=== PATIENT | male | born 1965 | race African-American/Black ===

== ENCOUNTER 2019-01-07 18:08 | Inpatient (IN) | payer MEDICAID ==
[~2019-01-07] VITALS: Ht 182.9 cm; Wt 126.1 kg
--- NOTE | ~2019-01-07 | HEMODYNAMI ---
PATIENT:BRIANNA RAE MEDICAL RECORD: [id number] : 63 LOCATION[facility] D.[address] [id number] ADMISSION DATE: 01/07/19 Generatedon:01/08/201912:54 Patient name: BRIANNA RAE Patient #: [id number] : 1965 Date of study: 01/08/2019 Page: Of Hemodynamic Procedure Report Patient Data Patient Demographics Procedure consent was obtained First Name: BRIANNA Gender: Male Last Name: BUTHC : 1965 Patient #: [id number] Age: 53 year(s) Race: Black SSN: [id number] Additional ID: [id number] Contact details Address: [address] [place] [address] [place] State: [place] City: [place] Zip code: [address] Past Medical History Allergies: No known allergies Admission Admission Data Admission Date: 01/07/2019 Admission Time: 21:18 Arrival Date: 01/08/2019 Arrival Time: 0:00 Admit Source: Other Insurance Payor: Medicaid Room #: D.2115 Height (in.): 71.65 BSA: 2.34 (m2) Height (cm.): 182 BMI: 34.42 (kg/m2) Weight (lbs.): 251.33 Weight (kg.): 114 Lab Results Lab Result Date: 01/08/2019 Lab Result Time: 0:00 Biochemistry Name Units Result Min Max BUN mg/dl 26 --(----)-* 7 18 CK-MB ng/ml 1.6 --(-*--)-- 0 3.6 Creatinine mg/dl 1.7 --(----)-* 0.6 1.3 CBC Name Units Result Min Max Hemoglobin g/dl 13.7 --(*---)-- 13.5 17.5 Procedure Procedure Types Cath Procedure Diagnostic Procedure LHC Coronaries only Sedation Charges Moderate Sedation up to 30 minutes Peripheral Cath Diagnostic Procedure Imaging Technologist Peripheral Procedures Renal Arteriogram Procedure Description Procedure Date Procedure Date: 01/08/2019 Procedure Start Time: 12:22 Procedure End Time: 12:53 Procedure Staff Name Function Octavio Boudreaux MD Performing Physician Pily Chavez RT Monitor Uzair Bahena RN Nurse Heather Vallejo RT Scrub Indication Chest pain Procedure Data Cath Procedure Fluoroscopy Diagnostic fluoroscopy Total fluoroscopy Time: 7.3 time: 7.3 min min Diagnostic fluoroscopy Total fluoroscopy dose: dose: 2603 mGy 2603 mGy Contrast Material Contrast Material Type Amount (ml) Isovue 300 206 Entry Location Entry Primary Successful Side Size Upsize Upsize Entry Closure Succes sful Closure Location (Fr) 1 (Fr) 2 (Fr) Remarks Device Remarks Femoral Right 5 Fr Exoseal artery Estimated blood loss: 10 ml Diagnostic catheters Device Type Used For End Catheter Placement MULTIPACK JL 4.0 5Fr Procedure catheter DIAGNOSTIC JL 5 5Fr Procedure catheter ([id number]) MULTIPACK 3DRC 5Fr Procedure catheter DIAGNOSTIC AL2 5Fr Procedure catheter ([id number]) Procedure Complications No complications Procedure Medications Medication Administration Route Dosage Oxygen etCO2 Nasal cannula 2 l/min Lidocaine 2% added to field 20 Heparin Flush Bag added to field 2 bags (1000units/500ml NS) 0.9% NaCl I.V. 100 ml/hr Versed I.V. 1 mg Fentanyl I.V. 50 mcg Versed I.V. 1 mg Fentanyl I.V. 50 mcg Hemodynamics Rest BSA: 2.34 (m2) HGB: 13.7 (g/dl) O2 Consumption: Estimated: 291.67 (ml/min) O2 Co nsumption indexed: Estimated:124.65 (ml/min/m) Heart Rate: 86 (bpm) Pressure Samples Time Site Value (mmHg) Purpose Heart Use Rate(bpm) 12:25 AO 155/92(117) Snapshot 86 Snapshots Pre Cath Intra NCS Post Cath Vital Signs Time Heart Resp SPO2 etCO2 NIBP (mmHg) Rhythm Pain Sedation Rate (ipm) (%) (mmHg) Status Level (bpm) 12:12:14 87 12 98 34.4 No Cuff NSR 0 (11) 10(A) , No pain 12:16:30 85 16 94 35.2 168/110(133) NSR 0 (11) 10(A) , No pain 12:20:44 88 16 93 34.4 165/105(136) NSR 0 (11) 10(A) , No pain 12:25:00 87 16 93 31.5 158/101(127) NSR 0 (11) 9(A) , No pain 12:29:18 89 16 92 30.7 175/107(135) NSR 0 (11) 9(A) , No pain 12:33:40 92 15 93 34.4 177/111(149) NSR 0 (11) 9(A) , No pain 12:38:02 91 15 92 34.4 176/110(143) NSR 0 (11) 9(A) , No pain 12:42:27 96 15 93 33.7 173/104(143) NSR 0 (11) 9(A) , No pain 12:46:51 97 17 92 32.2 176/113(146) NSR 0 (11) 10(A) , No pain 12:51:17 95 15 92 32.9 186/113(158) NSR 0 (11) 10(A) , No pain Medications Time Medication Route Dose Verified Delivered Reason Notes Eff ectiveness by by 12:11:34 Oxygen etCO2 2 Octavio Buffie used for Nasal l/min Janusz Bahena RN procedure cannula 12:11:40 Lidocaine 2% added 20ml Octavio Octavio for local to vial Janusz Boudreaux MD anesthetic field 12:11:47 Heparin Flush added 2 Octavio Octavio used for Bag to bags Janusz Boudreaux MD procedure (1000units/500ml field NS) 12:11:56 0.9% NaCl I.V. 100 Octavio Buffie Per ml/hr Janusz Bahena RN physician 12:20:46 Versed I.V. 1 mg Octavio Buffie for Janusz Bahena RN sedation 12:20:53 Fentanyl I.V. 50 Octavio Buffie for mcg Janusz Bahena RN sedation 12:37:31 Versed I.V. 1 mg Octavio Buffie for Janusz Bahena RN sedation 12:37:35 Fentanyl I.V. 50 Octavio Buffie for mcg Janusz Bahena RN sedation Procedure Log Time Note 11:52:31 Patient Height : 71.65 inches 11:52:41 Patient Weight : 251.33 lbs 11:52:48 Admit Source: Other 11:52:50 Arrival Date: 01/08/2019 12:00:00 AM 11:52:56 Insurance Payor : Medicaid 11:55:24 Lab Result : CK-MB 1.6 ng/ml 11:55:24 Lab Result : Hemoglobin 13.7 g/dl 11:55:24 Lab Result : BUN 26 mg/dl 11:55:24 Lab Result : Creatinine 1.7 mg/dl 11:55:36 Diagnostic Cath Status : Urgent 11:55:47 Indication : Chest pain 11:56:08 ACC Patient presents with Unstable Angina CCS Anginal Class 3--Marked limitation of physical activity, angina occurs with ordinary activity.. 11:56:13 Procedure Status Urgent Heart Cath (IP). 11:56:16 Uzair Bahena RN sent for patient. Start room use. 11:56:18 Time tracking: Regular hours (M-F 7:00 - 5:00) 11:56:22 Plan of Care:Hemodynamics will remain stable., Cardiac rhythm will remain stable., Comfort level will be maintained., Respiratory function will remain adequate., Patient/ family verbilizes understanding of procedure., Procedure tolerated without complication., Recovers from procedure without complications.. 11:56:42 3a) 45-59 Moderately reduced kidney function. 11:57:00 Maximum allowable contrast dose (3.7 X eGFR X 0.75)124 ml. 12:11:23 Vital chart was started 12:11:34 Oxygen 2 l/min etCO2 Nasal cannula was administered by Uzair Bahena RN; used for procedure; Verbal order read back and verified. 12:11:40 Lidocaine 2% 20ml vial added to field was administered by Octavio Boudreaux MD; for local anesthetic; Verbal order read back and verified. 12:11:47 Heparin Flush Bag (1000units/500ml NS) 2 bags added to field was administered by Octavio Boudreaux MD; used for procedure; Verbal order read back and verified. 12:11:56 0.9% NaCl 100 ml/hr I.V. was administered by Uzair Bahena RN; Per physician; Verbal order read back and verified. 12:14:57 Patient received from Med II to CCL 2 Alert and oriented. Tansferred to table in Supine position. 12:15:11 Signed procedure consent form obtained from patient. 12:15:13 Warm blankets applied, and pedro hugger turned on for patient comfort. 12:15:13 Correct patient and procedure confirmed by team. 12:15:14 Baseline sample Acquired. 12:15:14 ECG and BP/O2 sat monitors applied to patient. 12:15:18 Full Disclosure recording started 12:15:23 H&P Date Dictated: 01/08/2019 Within 30 days and on chart.. 12:15:24 Pre-procedure instructions explained to patient. 12:15:41 Family unavailable. 12:15:44 Patient NPO since Midnight. 12:15:57 Patient allergic to No known allergies 12:16:00 Is the patient allergic to Iodine/contrast media? No. 12:16:02 Was the patient premedicated? Yes 12:16:04 Is patient on blood thinner?No 12:16:25 Patient diabetic? Yes. 12:16:33 Snore? Unknown 12:16:36 Sleep apnea? Unknown 12:16:57 If diabetic: On Metformin? Unknown 12:17:21 Airway obstruction? Unknown ? 12:17:26 Dentures? Unknown ? 12:17:33 Patient pain scale 0/10 ?. 12:17:40 IV patent on arrival in right forearm with 0.9% NaCl at [facility] 12:17:44 Lab results completed and on chart. 12:17:50 Stress Test: no; N/A ? 12:17:53 Risk of Mortality: .3 12:17:56 Risk of blood transfusion: .7 12:18:00 Risk of JUVENAL: 2.2 12:18:05 Right groin area was prepped with chlora-prep and draped in sterile fashion 12:18:06 Alarms reviewed by R. N. 12:18:07 Sharps counted by scrub and verified by R.N. 12:18:09 Physician paged 12:18:09 Physician arrived 12:18:10 --------ALL STOP TIME OUT------ 12:18:17 Final Timeout: patient, procedure, and site verified with staff and physician. All members of the team are in agreement. 12:18:18 Right groin site verified by team. 12:18:22 Fire Safety Assessment: A--An alcohol-based skin anteseptic being used preoperatively., C--Open oxygen or nitrous oxide is being used., D--An ESU, laser, or fiber-optic light is being used. 12:19:02 Physical assessment completed. ASA score P 3 - A patient with severe systemic disease as per Octavio Boudreaux MD. 12:19:20 Sedation plan: IV Moderate Sedation Medication:Versed, Fentanyl 12:19:29 Use device set Femoral Dx 12:19:30 ACIST Syringe (53490) opened to sterile field. 12:19:31 Bag Decanter (2002S) opened to sterile field. 12:19:31 Medline Cath Pack ([id number]) opened to sterile field. 12:19:33 ACIST Hand Control (16419) opened to sterile field. 12:19:33 ACIST Manifold (93907) opened to sterile field. 12:19:34 DIAGNOSTIC Multipack 5Fr catheter set (NL1201) opened to sterile field. 12:19:35 Tegaderm 4 x 4 (1626W) opened to sterile field. 12:19:38 SHEATH 5FR [place] (GRX641) opened to sterile field. 12:19:38 EMERALD Guide Wire (460-031) opened to sterile field. 12:20:44 Zero performed for pressure channel P1 12:20:46 Versed 1 mg I.V. was administered by Uzair Bahena RN; for sedation; Verbal order read back and verified. 12:20:50 Zero performed for pressure channel P1 12:20:53 Fentanyl 50 mcg I.V. was administered by Uzair Bahena RN; for sedation; Verbal order read back and verified. 12:22:38 Procedure started. 12:22:50 Local anesthetic to right femoral artery with Lidocaine 2% by Octavio Boudreaux MD.INITIAL ACCESS ONLY 12:23:00 A 5 Fr sheath was inserted into the Right Femoral artery 12:25:03 A MULTIPACK JL 4.0 5Fr catheter was advanced over the wire and used for Procedure. 12:25:07 LCA angiography performed. 12:26:14 Catheter removed. 12:27:11 A DIAGNOSTIC JL 5 5Fr catheter ([id number]) was advanced over the wire and used for Procedure. 12:27:19 LCA angiography performed. 12:29:29 Catheter removed. 12:29:40 A MULTIPACK 3DRC 5Fr catheter was advanced over the wire and used for Procedure. 12:30:23 RCA angiography performed. 12:30:37 ACCDominant side:Left 12:31:21 Left renal angiography performed. 12:31:23 Right renal angiography performed. 12:32:04 Catheter removed. 12:32:10 GUIDE 5FR EBU 3.75 catheter ([id number]) opened to sterile field. 12:36:06 LCA angiography performed. 12:36:39 not able to visulaize the left coronarys well. guide exchanged for EBU4 12:37:31 Versed 1 mg I.V. was administered by Uzair Bahena RN; for sedation; Verbal order read back and verified. 12:37:35 Fentanyl 50 mcg I.V. was administered by Uzair Bahena RN; for sedation; Verbal order read back and verified. 12:38:19 GUIDE 5FR EBU 4.0 catheter (OL3TRG75) opened to sterile field. 12:38:42 LCA angiography performed. 12:42:48 Catheter removed. 12:43:17 A DIAGNOSTIC AL2 5Fr catheter ([id number]) was advanced over the wire and used for Procedure. 12:46:45 Catheter removed. 12:48:34 EXOSEAL 5Fr (EX500) opened to sterile field. 12:48:46 Sheath removed intact; hemostasis achieved with Exoseal to the Right Femoral artery. 12:48:49 Procedure ended.(Physican Out) 12:49:24 Fluoroscopy time 07.30 minutes. 12:49:28 Fluoroscopy dose: 2603 mGy 12:49:28 Flurop Dose total: 2603 12:49:33 Dose Area Product 853701 mGy/cm. 12:49:38 Contrast amount:Isovue 300 206ml. 12:49:40 Maximum allowable dose exceeded? Yes. 12:49:42 Sharps counted by scrub and verified by R.N. 12:49:49 Insertion/operative site no bleeding no hematoma. 12:49:53 Post right femoral artery:stable 12:49:59 Post Procedure Pulses reassessed and unchanged 12:50:04 Post-procedure physical assessment completed. ASA score P 3 - A patient with severe systemic disease as per Octavio Boudreaux MD. 12:50:08 Post procedure rhythm: unchanged. 12:50:11 Estimated blood loss: 10 ml 12:50:19 Post procedure instruction explained to patient.Patient verbalizes understanding. 12:50:29 Patient needs reinforcement of post procedure teaching. 12:52:14 Procedure type changed to Cath procedure, Diagnostic procedure, LHC, Coronaries only, Sedation Charges, Moderate Sedation up to 30 minutes, Peripheral Cath Diagnostic Procedure, Imaging Technologist Peripheral Procedures, Renal Arteriogram 12:52:16 Procedure and supply charges have been captured, reviewed, submitted and are correct. 12:52:36 Procedure Complication : No complications 12:52:39 Vital chart was stopped 12:52:47 [facility] Findings: MVD- MD will discuss options w/ pt 12:52:50 Operative report dictated upon procedure completion. 12:52:52 See physician's report for complete and final results. 12:52:59 Report given to Med II. 12:53:03 Patient transfered to Med II with Bed. 12:53:05 Procedure ended. 12:53:05 Full Disclosure recording stopped 12:53:11 End room use (Document Last) 12:53:45 End room use (Document Last) 12:54:20 End room use (Document Last) Device Usage Item Name Manufacture Quantity Catalog Hospital Part Current Minimal L ot# / Number Charge Number Stock Stock Serial# Code ACIST Acist 1 93669 519051 795202 503268 20 Syringe Medical (52181) Systems Inc Bag Microtek 1 2001S 465694 03685 259657 5 Decanter Medical Inc. () Medline Medline 1 [id number] 547819 27725 683447 5 Cath Pack ([id number]) ACIST Hand Acist 1 95807 407258 748265 742087 5 Control Medical (48022) Systems Inc ACIST Acist 1 06633 086573 759463 201399 5 Manifold Medical (79242) Systems Inc DIAGNOSTIC Cardinal 1 YL6022 009497 05551 432294 30 Multipack Ad Dynamo 5Fr catheter set (BB2174) Tegaderm 4 3M 1 1626W 667221 487850 172537 5 x 4 (1626W) SHEATH 5FR Terumo 1 MPL580 219827 630413 684908 5 [place] (EJF450) EMERALD Cardinal 1 502-455 262898 884790 045549 5 Guide Wire Health (502455) MULTIPACK Cardinal 1 906702 5 JL 4.0 5Fr Health catheter DIAGNOSTIC Cardinal 1 [id number] 458187 084006 440115 5 JL 5 5Fr Health catheter (897974C) MULTIPACK Cardinal 1 942390 5 3DRC 5Fr Health catheter GUIDE 5FR Medtronic 1 [id number] 215162 219844 589339 1 EBU 3.75 catheter ([id number]) GUIDE 5FR Medtronic 1 NS4IEG14 980605 599275 033678 1 EBU 4.0 catheter (OE5WDY36) DIAGNOSTIC Cardinal 1 [id number] 910819 372808 763369 15 AL2 5Fr Health catheter (693261O) EXOSEAL 5Fr Cardinal 1 EX500 038488 742532 565047 10 (EX500) Health Signature Audit [place] Stage Time Signature Unsigned Intra-Procedure 01/08/2019 Pily Chavez 12:53:45 PM RT(R) Intra-Procedure 01/08/2019 Uzair Bahena RN 12:54:20 PM Intra-Procedure 01/08/2019 Octavio Boudreaux MD 12:54:55 PM Signatures Performing Physician : Signature : Octavio Boudreaux MD Date : Time : Monitor : Pily Chavez Signature : RT Date : Time : Nurse : Uzair Bahena RN Signature : Date : Time : [facility] [address] [address]
--- NOTE | 2019-01-07 19:00 | NUR ---
PT RECEIVED KCL 20 IVPB, KCL 20MEQ ORAL, LASIX, 20MG IV, ASA 324MG PO, AND AN ALBUTEROL UPRAFT AT OTHER FACILITY PRIOR TO TRANSFER.
[2019-01-07 19:12] LABS: BASOPHILS 0.4 % (0-2); EOSINOPHILS 6.3 % (0-7); HEMOGLOBIN 13.7 g/dL (13.5-17.5); IMMATURE GRANULOCYTES 0.2 % (0-5); LYMPHOCYTES 30.2 % (15-50); MCH 26.1 pg (26.0-34.0); MCHC 32.6 g/dL (31.0-37.0); MEAN PLATELET VOLUME 9.4 fL (7.4-10.4); MONOCYTES 4.9 % (2-11); PLATELET COUNT 191 10x3/uL (130-400); RBC 5.25 10x6/uL (4.20-6.10); RDW 14.7 % (11.5-14.5); WBC 9.4 10x3/uL (4.8-10.8)
--- NOTE | 2019-01-07 19:15 | NUR ---
REPORT GIVEN TO EVANGELISTA GUPTA, AT THIS TIME.
[2019-01-07 19:21] LABS: APTT 26.7 SECONDS (22.8-39.4); INR 1.11 (0.85-1.17); PROTIME 13.8 SECONDS (11.6-15.0)
[2019-01-07 19:24] LABS: CALC OSMOLALITY 291 mosm/kg (275-300); CALCIUM 9.3 mg/dL (8.5-10.1); CARBON DIOXIDE 31.4 mmol/L (21.0-32.0); CHLORIDE - SERUM 105 mmol/L (98-107); CREATININE - SERUM 1.6 mg/dL (0.6-1.3); GLUCOSE 106 mg/dL (74-106); POTASSIUM - SERUM 3.3 mmol/L (3.5-5.1); SODIUM 145 mmol/L (136-145); UREA NITROGEN 21 mg/dL (7-18); eGFR NON AFRICAN AMERICAN 48 mL/min (90-120)
[2019-01-07 19:30] VITALS: BP 212/131
[2019-01-07 19:46] LABS: ALBUMIN 3.6 g/dL (3.4-5.0); ALKALINE PHOSPHATASE 95 U/L (46-116); ALT (SGPT) 34 U/L (10-68); CREATINE KINASE 81 UL (21-232); MAGNESIUM - SERUM 1.8 mg/dL (1.8-2.4); PROTEIN - SERUM 7.1 g/dL (6.4-8.2)
[2019-01-07 19:50] LABS: TROPONIN-I 0.162 ng/mL (0.000-0.060)
[2019-01-07 20:00] VITALS: BP 196/114
[2019-01-07 20:30] VITALS: BP 193/127
--- NOTE | 2019-01-07 20:30 | NUR ---
PT RESTING ON BED. PT AWAKE AND ALERT.
[2019-01-07 21:00] VITALS: BP 177/93
[2019-01-07 23:00] VITALS: BP 172/104
[2019-01-07 23:13] VITALS: BP 181/106; BMI 34.1
--- NOTE | 2019-01-07 23:24 | NUR ---
RECIEVED REPORT FROM ALONSO IN ER. ARRIVED TO FLOOR ON STRETCHER. TRANSFERED SELF TO BED. A/O X4. UP AD VIPUL. POOR HISTORIAN AND UNABLE TO RECALL MEDICATIONS. SPOKE WITH DAUGHTER AND SAID SHE WILL BRING THEM TOMORROW. SAID HE HAS MEMORY LOSS D/T A STROKE HE HAD SEVERAL YEARS AGO. UNABLE TO RECALL SURGERYS FROM THE PAST. ASSESSMENT COMPLETED.
[2019-01-08 00:33] LABS: CKMB 1.7 U/L (0.0-3.6); CREATINE KINASE 75 UL (21-232)
[2019-01-08 04:00] VITALS: BP 150/72
[2019-01-08 06:13] LABS: BASOPHILS 0.3 % (0-2); EOSINOPHILS 5.5 % (0-7); HEMATOCRIT 42.8 % (42.0-54.0); HEMOGLOBIN 13.9 g/dL (13.5-17.5); IMMATURE GRANULOCYTES 0.2 % (0-5); LYMPHOCYTES 23.8 % (15-50); MCHC 32.5 g/dL (31.0-37.0); MEAN PLATELET VOLUME 9.8 fL (7.4-10.4); NEUTROPHILS 65.2 % (40-80); PLATELET COUNT 222 10x3/uL (130-400); RBC 5.35 10x6/uL (4.20-6.10); RDW 14.9 % (11.5-14.5); WBC 9.5 10x3/uL (4.8-10.8)
[2019-01-08 06:54] LABS: CALC OSMOLALITY 296 mosm/kg (275-300); CALCIUM 9.4 mg/dL (8.5-10.1); CARBON DIOXIDE 29.7 mmol/L (21.0-32.0); CHLORIDE - SERUM 106 mmol/L (98-107); CKMB 1.6 U/L (0.0-3.6); CREATINE KINASE 85 UL (21-232); CREATININE - SERUM 1.7 mg/dL (0.6-1.3); GLUCOSE 115 mg/dL (74-106); POTASSIUM - SERUM 3.5 mmol/L (3.5-5.1); SODIUM 146 mmol/L (136-145); UREA NITROGEN 26 mg/dL (7-18); eGFR NON AFRICAN AMERICAN 45 mL/min (90-120)
[2019-01-08 06:55] LABS: TROPONIN-I 0.165 ng/mL (0.000-0.060)
--- NOTE | 2019-01-08 07:15 | NUR ---
RECEIVED PT IN BED AAOX4 RESP UNLABORED C/O GRAHAM 06/07 AT THIS TIME DENIES ANY CHEST DISCOMFORT AT THIS TIME
[2019-01-08 08:01] LABS: CHOL - HDL RATIO 3.5 ratio (2.3-4.9); LDL-HDL RATIO 2.2 ratio (1.5-3.5)
[2019-01-08 09:00] VITALS: BP 90/54
[2019-01-08 11:46] VITALS: BP 166/74
[2019-01-08] MEDS ORDERED: LIPITOR20 MG PO (13:17)
[2019-01-08] MEDS ORDERED: ULTRAM50 MG PO (13:18)
[2019-01-08] MEDS ORDERED: LASIX80 MG PO (13:19)
[2019-01-08] MEDS ORDERED: LASIX40 MG PO (13:19)
[2019-01-08] MEDS ORDERED: FLOMAX0.4 MG PO (13:20)
[2019-01-08] MEDS ORDERED: ZESTRIL40 MG PO (13:20)
[2019-01-08] MEDS ORDERED: LONITEN10 MG PO (13:21)
[2019-01-08] MEDS ORDERED: KEPPRA500 MG PO (13:22)
[2019-01-08] MEDS ORDERED: PROTONIX40 MG PO (13:23)
[2019-01-08] MEDS ORDERED: K-DUR20 MEQ PO (13:23)
[2019-01-08] MEDS ORDERED: MAG-OX 400 MG400 MG PO (13:24)
[2019-01-08] MEDS ORDERED: CYCLOBENZAPRINE10 MG PO (13:25)
[2019-01-08] MEDS ORDERED: TOPROL XL100 MG PO (13:27)
[2019-01-08] MEDS ORDERED: REGLAN10 MG PO (13:27)
[2019-01-08] MEDS ORDERED: LANTUS SOL100 UNIT/1 SQ (13:28)
[2019-01-08 14:31] VITALS: BMI 34.0
[2019-01-08 16:16] VITALS: BP 145/66
[2019-01-08 16:35] VITALS: Ht 182.9 cm; Wt 126.1 kg
--- NOTE | 2019-01-08 19:24 | NUR ---
RECIEVED BEDSIDE SHIFT REPORT. ALERT AND ORIENTED X4. UP AD VIPUL TO B/R. O2@ 3 LITERS PER N/C IN PLACE. IV TO RIGHT AC SL.. DENIES ANY NEEDS AT THIS TIME.
[2019-01-08 20:00] VITALS: BP 162/58
--- NOTE | 2019-01-08 23:17 | NUR ---
B/P MEDICATION HELD D/T 162/58. NOW 159/82 WILL GIVE MEDICATION AT THIS TIME.
[2019-01-09 00:30] VITALS: BP 159/82
[2019-01-09 04:00] VITALS: BP 117/68
[2019-01-09 05:08] LABS: BASOPHILS 0.3 % (0-2); EOSINOPHILS 5.3 % (0-7); HEMATOCRIT 45.1 % (42.0-54.0); HEMOGLOBIN 14.7 g/dL (13.5-17.5); IMMATURE GRANULOCYTES 0.2 % (0-5); LYMPHOCYTES 20.7 % (15-50); MCH 26.2 pg (26.0-34.0); MCHC 32.6 g/dL (31.0-37.0); MCV 80.4 fL (80.0-100.0); MEAN PLATELET VOLUME 9.9 fL (7.4-10.4); MONOCYTES 4.6 % (2-11); NEUTROPHILS 68.9 % (40-80); PLATELET COUNT 229 10x3/uL (130-400); RBC 5.61 10x6/uL (4.20-6.10); RDW 15.2 % (11.5-14.5); WBC 10.2 10x3/uL (4.8-10.8)
[2019-01-09 05:24] LABS: ANION GAP 14.9 mmol/L (8-16); CALCIUM 9.4 mg/dL (8.5-10.1); CARBON DIOXIDE 28.1 mmol/L (21.0-32.0)
[2019-01-09 05:26] LABS: CREATININE - SERUM 2.3 mg/dL (0.6-1.3)
--- NOTE | 2019-01-09 07:15 | NUR ---
RECEIVED PT IN BED EYES CLOSED RESP UNLABORED NAD NOTED
[2019-01-09 08:00] VITALS: BP 137/75
[2019-01-09 08:03] LABS: UDS - AMPHET NEGATIVE QUAL (NEGATIVE); UDS - BARB NEGATIVE QUAL (NEGATIVE); UDS - BENZO POSITIVE QUAL (NEGATIVE); UDS - COCAINE NEGATIVE QUAL (NEGATIVE); UDS - OPIATE NEGATIVE QUAL (NEGATIVE); UDS - PCP NEGATIVE QUAL (NEGATIVE); UDS - THC NEGATIVE QUAL (NEGATIVE)
[2019-01-09 08:23] LABS: APPEARANCE CLEAR (CLEAR); BILIRUBIN NEGATIVE (NEGATIVE); COLOR YELLOW (YELLOW); GLUCOSE NEGATIVE (NEGATIVE); KETONE NEGATIVE (NEGATIVE); NITRITE NEGATIVE (NEGATIVE); PROTEIN 1+ mg/dL (NEGATIVE); UROBILINOGEN NORMAL (NORMAL)
[2019-01-09 08:24] LABS: BACTERIA FEW /hpf (NEGATIVE); EPITHELIAL CELLS RARE /hpf (0-5); MUCUS <1+ /lpf (NONE SEEN); RED CELLS - URINE NONE SEEN /hpf (0-5); WHITE CELLS - URINE NSEEN /hpf (NEGATIVE)
--- NOTE | 2019-01-09 11:39 | NUR ---
FSBS 151
[2019-01-09 12:00] VITALS: BP 152/74
[2019-01-09 13:15] LABS: APTT 27.3 SECONDS (22.8-39.4); INR 1.11 (0.85-1.17); PROTIME 13.8 SECONDS (11.6-15.0)
[2019-01-09 13:20] LABS: ALBUMIN 3.4 g/dL (3.4-5.0); ANION GAP 12.3 mmol/L (8-16); BILIRUBIN - TOTAL 0.68 mg/dL (0.2-1.3); CALCIUM 9.3 mg/dL (8.5-10.1); CARBON DIOXIDE 30.8 mmol/L (21.0-32.0); CREATININE - SERUM 2.6 mg/dL (0.6-1.3); PHOSPHOROUS 4.5 mg/dL (2.5-4.9); POTASSIUM - SERUM 4.1 mmol/L (3.5-5.1); PROTEIN - SERUM 7.3 g/dL (6.4-8.2); T4 THYROXIN - FREE 1.11 ng/dL (0.76-1.46); THYROID STIMULATING HORMONE 5.38 uIU/mL (0.36-3.74)
[2019-01-09 16:00] VITALS: BP 115/59
--- NOTE | 2019-01-09 19:15 | NUR ---
RECEIVED BEDSIDE REPORT. PATIENT RESTING COMFORTABLY IN BED. RESPIRATIONS ARE EVEN AND UNLABORED. NO S/S OF DISTRESS. NO C/O PAIN. CALL LIGHT WIHIN REACH. WILL CPOC.
[2019-01-09 20:00] VITALS: BP 126/66
[2019-01-10] VITALS: BP 113/54
[2019-01-10 04:00] VITALS: BP 126/62
[2019-01-10 04:58] LABS: APPEARANCE CLEAR (CLEAR); BILIRUBIN NEGATIVE (NEGATIVE); COLOR YELLOW (YELLOW); GLUCOSE NEGATIVE (NEGATIVE); KETONE NEGATIVE (NEGATIVE); NITRITE NEGATIVE (NEGATIVE); PROTEIN 2+ mg/dL (NEGATIVE); SPECIFIC GRAVITY 1.015 (1.005-1.020); UROBILINOGEN NORMAL (NORMAL)
[2019-01-10 05:03] LABS: BASOPHILS 0.2 % (0-2); EOSINOPHILS 1.4 % (0-7); HEMATOCRIT 40.9 % (42.0-54.0); HEMOGLOBIN 13.1 g/dL (13.5-17.5); IMMATURE GRANULOCYTES 0.1 % (0-5); LYMPHOCYTES 21.8 % (15-50); MCH 25.9 pg (26.0-34.0); MCV 80.8 fL (80.0-100.0); MEAN PLATELET VOLUME 9.9 fL (7.4-10.4); MONOCYTES 5.6 % (2-11); NEUTROPHILS 70.9 % (40-80); PLATELET COUNT 234 10x3/uL (130-400); RBC 5.06 10x6/uL (4.20-6.10); RDW 15.4 % (11.5-14.5); WBC 10.3 10x3/uL (4.8-10.8)
[2019-01-10 05:19] LABS: ANION GAP 13.7 mmol/L (8-16); CALCIUM 9.4 mg/dL (8.5-10.1); CARBON DIOXIDE 27.4 mmol/L (21.0-32.0); CREATININE - SERUM 3.1 mg/dL (0.6-1.3); POTASSIUM - SERUM 4.1 mmol/L (3.5-5.1)
--- NOTE | 2019-01-10 08:30 | NUR ---
SURGERY CANCELLED. DIET AND MEDS RESUMED.
[2019-01-10 09:12] VITALS: BP 112/54
--- NOTE | 2019-01-10 10:58 | NUR ---
IV STARTED TO RIGHT HAND WITH 20 GAUGE CATH X 1 BY NADYA NAIDU VASULAR NURSE. LINE IS PATENT.
[2019-01-10 12:08] VITALS: BP 112/56
[2019-01-10 13:57] LABS: CREATININE - URINE 196.2 mg/dL (30-125); PROTEIN - URINE 57.3 mg/dL (0.0-11.9)
--- NOTE | 2019-01-10 16:56 | MORECARE ---
CASE MANAGEMENT DISCHARGE SUMMARY PATIENT: BRIANNA RAE UNIT: [id number] ADM DATE: 01/07/19 AGE: 53 : 63 SEX: M ROOM/BED: D.2115 AUTHOR: MICHELLE GUPTA PHYSICIAN: REFERRING PHYSICIAN: MARY LOYD MD DATE OF SERVICE: 01/10/19 Discharge Plan Patient Name: [facility]RIANNA [facility]AE [facility] [facility] 1965 Planned Disposition: Home Anticipated Discharge Date: Discharge Date: Expected LOS: Initial Reviewer: [email or web address] Initial Review Date: 01/10/2019 Generated: 01/10/19 5:56 pm Patient Name: BRIANNA RAE Page 91360 at 1656 All edits/amendments must be made on the electronic document DICTATION DATE: 01/10/191655 PHILOSOPHY LECTURER: AURORA 01/10/191655 RPT#: [id number] DC DATE: STATUS: ADM IN [facility] [address] [place] [address] END OF REPORT
--- NOTE | 2019-01-10 17:06 | MORECARE ---
CASE MANAGEMENT DISCHARGE SUMMARY PATIENT: BRIANNA RAE UNIT: [id number] ADM DATE: 01/07/19 AGE: 53 : 63 SEX: M ROOM/BED: D.2115 AUTHOR: MICHELLE GUPTA PHYSICIAN: REFERRING PHYSICIAN: MARY LODY MD DATE OF SERVICE: 01/10/19 Discharge Plan Patient Name: BRIANNA RAE [facility] : 1965 Planned Disposition: Home Anticipated Discharge Date: Discharge Date: Expected LOS: Initial Reviewer: [email or web address] Initial Review Date: 01/10/2019 Generated: 01/10/19 6:06 pm DCPIA - Discharge Planning Initial Assessment Updated by [email or web address]: Jose Avila on 01/10/19 4:58 pm * Is the patient Alert and Oriented? Yes * How many steps to enter\exit or inside your home? 0 * PCP DR. CAMPOS * [facility] [place] * Preadmission Environment Home with Family * ADLs Independent * Equipment Oxygen * Other Equipment HOME OXYGEN ONLY AT NIGHT - [facility] * List name and contact numbers for known caregivers / representatives who currently or will assist patient after discharge: STAN ANGELES, MOTHER IN LAW, , * Verbal permission to speak to the caregivers and representatives has been obtained from the patient. Yes * Community resources currently utilized None * Please name any agencies selected above. NONE * Additional services required to return to the preadmission environment? No * Can the patient safely return to the preadmission environment? Yes * Has this patient been hospitalized within the prior 30 days at any hospital? No Last DP export: 01/10/19 3:56 Patient Name: BRIANNA RAE Page 32855 at 1706 All edits/amendments must be made on the electronic document DICTATION DATE: 01/10/191705 MATHEMATICS TEACHER: AURORA 01/10/191705 RPT#: [id number] DC DATE: STATUS: ADM IN [facility] [address] [place] [address] END OF REPORT
--- NOTE | 2019-01-10 17:15 | MORECARE ---
CASE MANAGEMENT DISCHARGE SUMMARY PATIENT: BRIANNA RAE UNIT: [id number] ADM DATE: 01/07/19 AGE: 53 : 63 SEX: M ROOM/BED: D.6745 AUTHOR: CANYD,DOC PHYSICIAN: REFERRING PHYSICIAN: MARY LOYD MD DATE OF SERVICE: 01/10/19 Discharge Plan Patient Name: BRIANNA RAE Facility: [facility]:[place] : 1965 Planned Disposition: Home Anticipated Discharge Date: Discharge Date: Expected LOS: Initial Reviewer: [email or web address] Initial Review Date: 01/10/2019 Generated: 01/10/19 6:14 pm Comments DCP- Discharge Planning Updated by [email or web address]: Jose Avila on 01/10/19 4:[address] Patient Name: BRIANNA RAE Admission Status: ER Accout number: [id number] Admission Date: 01-07-2019 : 1965 Admission Diagnosis: Attending: MARY LOYD Current LOS: 3 Anticipated DC Date: Planned Disposition: Home Primary Insurance: MEDICAID [place] Discharge Planning Comments: CM MET WITH PT IN ROOM TO DISCUSS DISCHARGE PLANNING AND NEEDS. PT REPORTS LIVING AT HOME INDEPENDENTLY WITH HIS MOTHER AND CHILDREN. PT HAS HOME OXYGEN HE WEARS ONLY AT NIGHT FROM [facility]. PT HAS NO OUTSIDE SERVICES ASSISTING IN THE HOME. CM DISCUSSED AVAILABILITY OF HOME HEALTH, REHAB SERVICES AND MEDICAL EQUIPMENT. PT DENIES DISCHARGE NEEDS AT THIS TIME, REPORTS HIS BROTHER IN LAW WILL PICK HIM UP FOR DISCHARGE HOME. PT'S FAMILY HERE FOR SURGERY TODAY, IT WAS CANCELLED. THEY ASKED FOR LETTERS FOR WORK AND SCHOOL. CM PROVIDED LETTERS FOR TODAY TO FÉLIX SAUCEDO, BROTHER IN LAW, SHALA RAE, DAUGHTER AND JUDY RAE, SON. COPIES OF LETTERS PLACED IN CHART. CM TO FOLLOW AND ASSIST NEEDED. PT PLANS TO DISCHARGE HOME WITH FAMILY, HAS NO ANTICIPATED DISCHARGE NEEDS AT THIS TIME AND BROTHER IN LAW PLANS TO AUTOMATION TEST DEVELOPER PT FOR TRANSPORT HOME. Brick Chimney Supervisor: Jose Avila DCPIA - Discharge Planning Initial Assessment Updated by [email or web address]: Jose Avila on 01/10/19 4:58 pm * Is the patient Alert and Oriented? Yes * How many steps to enter\exit or inside your home? * PCP DR. CAMPOS * [facility] [place] * Preadmission Environment Home with Family * ADLs Independent * Equipment Oxygen * Other Equipment HOME OXYGEN ONLY AT NIGHT - [facility] * List name and contact numbers for known caregivers / representatives who currently or will assist patient after discharge: STAN ANGELES, MOTHER IN LAW, , * Verbal permission to speak to the caregivers and representatives has been obtained from the patient. Yes * Community resources currently utilized None * Please name any agencies selected above. NONE * Additional services required to return to the preadmission environment? No * Can the patient safely return to the preadmission environment? Yes * Has this patient been hospitalized within the prior 30 days at any hospital? No Last DP export: 01/10/19 4:06 Patient Name: BRIANNA RAE Page 22108 at 1715 All edits/amendments must be made on the electronic document DICTATION DATE: 01/10/191713 HOME SALES SERVICE PROFESSIONAL: AURORA 01/10/191713 RPT#: [id number] DC DATE: STATUS: ADM IN [facility] [address] [place] [address] END OF REPORT
--- NOTE | 2019-01-10 19:30 | NUR ---
RECEIVED BEDSIDE REPORT. PATIENT IS ALERT AND ORIENTED, RESTING COMFORTABLY IN BED. RESPIRATIONS ARE EVEN AND UNLABORED. NO S/S OF DISTRESS. NO C/O PAIN. NEEDS MET. CALL LIGHT WITHIN REACH. WILL CPOC.
[2019-01-10 20:38] VITALS: BP 129/75
[2019-01-11] VITALS: BP 95/59
[2019-01-11 04:30] VITALS: BP 100/59
[2019-01-11 06:31] LABS: BASOPHILS 0.4 % (0-2); EOSINOPHILS 3.6 % (0-7); HEMATOCRIT 39.5 % (42.0-54.0); HEMOGLOBIN 12.6 g/dL (13.5-17.5); IMMATURE GRANULOCYTES 0.1 % (0-5); LYMPHOCYTES 23.6 % (15-50); MCH 25.6 pg (26.0-34.0); MCHC 31.9 g/dL (31.0-37.0); MCV 80.3 fL (80.0-100.0); MEAN PLATELET VOLUME 10.2 fL (7.4-10.4); MONOCYTES 5.7 % (2-11); NEUTROPHILS 66.6 % (40-80); PLATELET COUNT 230 10x3/uL (130-400); RBC 4.92 10x6/uL (4.20-6.10); RDW 15.2 % (11.5-14.5); WBC 8.9 10x3/uL (4.8-10.8)
[2019-01-11 06:48] LABS: ALBUMIN 3.4 g/dL (3.4-5.0); ANION GAP 12.8 mmol/L (8-16); BILIRUBIN - TOTAL 0.61 mg/dL (0.2-1.3); CALCIUM 8.8 mg/dL (8.5-10.1); CARBON DIOXIDE 27.6 mmol/L (21.0-32.0); CREATININE - SERUM 2.7 mg/dL (0.6-1.3); POTASSIUM - SERUM 4.4 mmol/L (3.5-5.1); PROTEIN - SERUM 6.6 g/dL (6.4-8.2)
[2019-01-11 09:08] VITALS: BP 128/72
[2019-01-11 09:10] LABS: HEPATITIS C ANTIBODY <0.1 S/CO RAT (0.0-0.9)
--- NOTE | 2019-01-11 11:55 | NUR ---
TELEMETRY SR. IV PATENT. CALL LIGHT IN REACH. WI9LL CONT. PLAN OF CARE.
[2019-01-11 12:27] VITALS: BP 132/79
--- NOTE | 2019-01-11 13:36 | NUR ---
Nutrition Follow-up: Good appetite/PO intake. Noted plans for CABG next wk. Diet: Renal ADA PO intake: 100% x 6 meals Wt: 251# Last BM: 01/09 per chart Labs noted: Glu 117, A1C 6.5, K+ 4.4 Meds noted: NS @ 75, KDur -Continue current diet as tolerated. -RD following.
[2019-01-11 17:19] VITALS: BP 120/69
--- NOTE | 2019-01-11 19:48 | NUR ---
RECEIVED BEDSIDE REPORT. PATIENT IS RESTING COMFORTABLY IN BED. RESPIRATIONS ARE EVEN AND UNLABORED. NO S/S OF DISTRESS. NO C/O PAIN. CALL LIGHT WITHIN REACH. WILL CPOC.
[2019-01-11 20:39] VITALS: BP 115/48
[2019-01-12] VITALS (45 sets, daily range): BP systolic 87–139; BP diastolic 46–71
--- NOTE | 2019-01-12 02:12 | NUR ---
PATIENT RESTING COMFORTABLY IN BED. RESPIRATIONS ARE EVEN AND UNLABORED. NO S/S OF DISTRESS. CALL LIGHT WITHIN REACH. WILL CPOC.
--- NOTE | 2019-01-12 03:57 | NUR ---
PATIENT HAS BEEN PREPPED FOR CABG.
[2019-01-12 05:55] LABS: BASOPHILS 0.5 % (0-2); EOSINOPHILS 4.3 % (0-7); HEMATOCRIT 36.7 % (42.0-54.0); IMMATURE GRANULOCYTES 0.1 % (0-5); LYMPHOCYTES 32.6 % (15-50); MCH 26.2 pg (26.0-34.0); MCHC 32.7 g/dL (31.0-37.0); MCV 80.1 fL (80.0-100.0); MEAN PLATELET VOLUME 9.9 fL (7.4-10.4); MONOCYTES 7.7 % (2-11); NEUTROPHILS 54.8 % (40-80); PLATELET COUNT 210 10x3/uL (130-400); RBC 4.58 10x6/uL (4.20-6.10); RDW 14.8 % (11.5-14.5); WBC 7.5 10x3/uL (4.8-10.8)
[2019-01-12 06:20] LABS: ALBUMIN 3.2 g/dL (3.4-5.0); ANION GAP 12.2 mmol/L (8-16); BILIRUBIN - TOTAL 0.57 mg/dL (0.2-1.3); CARBON DIOXIDE 26.9 mmol/L (21.0-32.0); CREATININE - SERUM 2.4 mg/dL (0.6-1.3); POTASSIUM - SERUM 4.1 mmol/L (3.5-5.1); PROTEIN - SERUM 6.7 g/dL (6.4-8.2)
--- NOTE | 2019-01-12 13:16 | NUR ---
PT ARRIVED IN THE UNIT. PT HOOKED TO ICU MONITORS. NSR ON THE MONITOR. PT SEDATED AND ON THE VENTILATOR. RIGHT CVL NOTED. SEE IV FLUIDS FOR GTTS AND RATES. MIDSTERNAL AND SUBSTERANL DRESSING C/D/I. CT X2 BIFIRCATED TO A SINGLE DRAIN TUBE NOTED. IT IS CONNECTED TO 20 OF H2O SUCTION WITH NO AIR LEAK. LEFT NELIA DRAIN TUBE NOTED. COMPRESSED. FC NOTED WITH BLOODY DINGED URINE. RLE HARVEST SITE NOTED. KOBAN FROM ANKLE TO GROIN NOTED. VSS WILL CONT POC.
--- NOTE | 2019-01-12 13:24 | NUR ---
KATHE ATTEMPTED BY Jt DURAN RN, AND Todd HUGGINS RN. WITH 16FR TEMP WITH NO SUCCESS, ATTEMPT WITH COUDE. DR NEWMAN NOTIFIED. DR ARIAS CONSULTED.
--- NOTE | 2019-01-12 13:51 | NUR ---
ABG RESULTS REICIEVED. HCO3 GIVEN PER PROTOCOL.
--- NOTE | 2019-01-12 13:51 | OP ---
PATIENT NAME: BRIANNA RAE MEDICAL RECORD: [id number] :63 LOCATION:[facility] ADMISSION DATE:01/07/19 SURGEON: LAMONT ARIAS MD DATE OF OPERATION: 01/12/2019 SURGEON: Lamont Arias MD ANESTHESIA: General anesthesia by Lamont Ch MD DIAGNOSES: Urethral stricture, inability to be catheterized. PROCEDURES: Cystoscopy, urethral stricture dilation, insertion of Kennedy catheter over a guidewire. FINDINGS: Genital warts on the penile foreskin and scrotum. Bulbar urethral stricture. BLOOD LOSS: None. CLINICAL HISTORY: This is a 53-year-old male, who IS general anesthetic in order to have heart surgery. The heart team could not get a Kennedy catheter into the patient. Therefore, I was called to come into the operating room to get a catheter in. I will be looking in with cystoscopy. He is already asleep and he has his anesthetic given to him. DESCRIPTION OF PROCEDURE: The patient was placed into frog-leg position on the OR table. He was prepped and draped. A 21-Burmese cystoscope with 30-degree lens was used for visualization. He has a long redundant penile foreskin with genital warts on it. This was pulled back. The scope was placed into the urethra. In the bulbar urethra, there was a tight annular stricture, most likely from previous infectious urethritis from chlamydia or gonorrhea. A Sensor wire was passed through the stricture lumen into the bladder. As the heart team requires a 16-Burmese temperature-sensing Kennedy catheter, I had to use male sounds from 16-Burmese and then to 18-Burmese in order to dilate the stricture. The catheter was converted into a Councill tip catheter. Over the wire, the catheter was placed and it entered into the bladder. Once the catheter balloon was inflated with 10 cc of sterile water, the Sensor wire was removed entirely. The catheter was put to bag drainage. The cardiac surgery can now proceed. TRANSINT:[id number] Voice Confirmation ID: [id number] DOCUMENT ID: [id number] LAMONT ARIAS MD at 1351 CC: [id number] DICTATION DATE: 01/12/19915 COMMERCIAL ARTIST LETTERING: 01/12/19924 ADM IN [address] [place] [address]
--- NOTE | 2019-01-12 14:56 | NUR ---
ABG RESULTS RECEIVED. HCO3 TREATED PER ORDERS. DR NEWMAN IN THE ROOM AND AWARE. CONT POC.
--- NOTE | 2019-01-12 15:00 | NUR ---
DR MANN AT THE PTS BEDSIDE. NO N.O AT THIS TIME. WILL CONT PC.
--- NOTE | 2019-01-12 16:05 | NUR ---
ABG RESULTS RECIEVED. DR NEWMAN REVIEWED. TREAT HCO3 PER ORDERS.
--- NOTE | 2019-01-12 16:23 | NUR ---
PT AWAKE AND FOLLOWING COMMANDS BUT WILL SHORTLY CLOSE HIS EYES AND FALL BACK ASLEEP. WILL CONT WEEN OFF VENT PER RT. WILL CONT POC.
--- NOTE | 2019-01-12 17:25 | NUR ---
PT REMAINS EXTREAMLY DROSWEY AND NOT ABLE TO WEEN AT THIS TIME. DR MANN AND DR NEWMAN BOTH NOTIFIED. SEDATE IF NEEDED OVER NIGHT AND WILL ATTEMPT TO WEEN IN THE MORNING.
--- NOTE | 2019-01-12 18:15 | NUR ---
DR NEWMAN NOTIFIED ABOUT CVP 13-14. NO NEW ORDERS. WILL CONT POC.
--- NOTE | 2019-01-12 18:17 | NUR ---
ADRIELN INITIATED. PT RESTING WITH EYES CLOSED. NO S/SX OF DISTRESS/DISCOMFORT NOTED. CALL LIGHT IN REACH. VSS. WILL CONT POC.
--- NOTE | 2019-01-12 19:00 | NUR ---
REPORT RECEIVED. RECEIVED PATIENT IN BED. SEDATED/INTUBATED. ETT INTACT/SECURE/PATENT CONNECTED TO MECHANICAL VENT AT ORDERED SETTINGS. HOB UP 30 DEGREES. ROUSES EASILY RO VERBAL STIMULI AND ABLE TO FOLLOW SIMPLE COMMANDS. MONITORS CONNECTED TO PATIENT WITH ALARMS SET. VSS. ASSESSMENT COMPLETED PER FLOW SHEET WITH NO DISTRESS OBSERVED. IV FLUIDS/TUBING DATED/LABELED AND CURRENT, SWAB CAPS COVERING ALL UNUSED PORTS.
--- NOTE | 2019-01-12 21:00 | NUR ---
SEDATED/INTUBATED. ROUSES TO VERBAL STMULI. VSS. HOB UP 30 DEGREES
--- NOTE | 2019-01-12 23:00 | NUR ---
REASSESSMENT COMPLETED PER FLOW SHEET WITH NO ACUTE DISTRESS OBSERVED. ETT INTACT/SECURE/PATENT. VSS
[2019-01-13] VITALS (55 sets, daily range): BP systolic 94–151; BP diastolic 54–98
--- NOTE | 2019-01-13 01:00 | NUR ---
SEDATED/INTUBATED. ROUSES TO VERBAL STIMULI. VSS.
--- NOTE | 2019-01-13 03:00 | NUR ---
SEDATED/INTUBATED. ROUSES TO VERBAL STIMULI. VSS. REASSESSMENT COMPLETED PER FLOW SHEET WITH NO ACUTE DISTRESS OBSERVED
--- NOTE | 2019-01-13 04:30 | NUR ---
CHG BATH AND SUBSTERNAL DRSG CHANGED. LINENS CHANGED. KAILA WITHOUT DIFF. VSS
--- NOTE | 2019-01-13 05:00 | NUR ---
ETT INTACT/ SECURE/ PATENT CONNECTED TO [facility] VENT AT ORDERED SETTINGS. VSS. HOP UP 30 DEGREES
[2019-01-13 05:35] LABS: BASOPHILS 0.1 % (0-2); EOSINOPHILS 0 % (0-7); HEMATOCRIT 35.1 % (42.0-54.0); HEMOGLOBIN 11.3 g/dL (13.5-17.5); IMMATURE GRANULOCYTES 0.2 % (0-5); LYMPHOCYTES 11.2 % (15-50); MCH 25.8 pg (26.0-34.0); MCHC 32.2 g/dL (31.0-37.0); MCV 80.1 fL (80.0-100.0); MEAN PLATELET VOLUME 9.7 fL (7.4-10.4); MONOCYTES 9.5 % (2-11); RBC 4.38 10x6/uL (4.20-6.10)
[2019-01-13 06:10] LABS: ALBUMIN 2.6 g/dL (3.4-5.0); ANION GAP 16.1 mmol/L (8-16); BILIRUBIN - TOTAL 0.73 mg/dL (0.2-1.3); CALCIUM 8.2 mg/dL (8.5-10.1); CARBON DIOXIDE 24.5 mmol/L (21.0-32.0); CREATININE - SERUM 2.8 mg/dL (0.6-1.3); POTASSIUM - SERUM 4.6 mmol/L (3.5-5.1); PROTEIN - SERUM 5.8 g/dL (6.4-8.2)
[2019-01-13 06:11] LABS: PLATELET COUNT 265 10x3/uL (130-400)
--- NOTE | 2019-01-13 07:00 | NUR ---
REPORT RECEVIED FROM THE OFF GOING RN. SEE ASSESSMENT IN THE PTS FLOW SHEET. PT SEDATED BUT FOLLOWS COMMANDS. 8.0 ETT 24 AT THE LIP. RIGHT IJ CVL NOTED. SEE IV GTTS IN FLOW SHEET. MIDSTERNAL AND SUBSTERNAL DRESSING C/D/I. CT X2 Y'D IN A SINGLE TUBE NOTED. LEFT NELIA DRAIN COMPRESSED. ALL DRAINS NOTED TO HAVE BLOODY DRAINAGE. TPM WIRES COILED. FC NOTED WITH CLEAR YELLOW URINE WITH SCANT AMOUNT OF BLOOD NOTED. RLE HARVEST SITE NOTED. KOBAN FROM ANKLE TO GROIN NOTED. TIFFANIE NOTED TO THE R RADIAL. DAMPED WAVE FORM AND IT IS SIGNIFICANTLY LOWER THAN THE NIBP. VSS. NSR ON THE MONITOR. CALL LIGHT IN REACH. WILL CONT POC.
--- NOTE | 2019-01-13 07:30 | NUR ---
SPOKE WITH DR NEWMAN ABOUT THE TIFFANIE BEING DAMPEN AND BEING SIGNIFICANTLY LOWER THAN THE NIBP. PER DR NEWMAN. USE CUFF PRESSURES AND KEEP TIFFANIE FOR ABG'S.
--- NOTE | 2019-01-13 07:45 | NUR ---
VSS. SEDATION TURNED OFF. PT AWAKE AND FOLLOWING COMMANDS. DR MANN AND DR NEWMAN NOTIFIED. START WEENING PROCESS. RT NOTIFIED. WEENING PROCESS PER PROTOCOL
--- NOTE | 2019-01-13 08:58 | NUR ---
PT TOLERATING CPAP ON VENT. WILL CONT TO WEEN. VSS. WILL CONT POC.
--- NOTE | 2019-01-13 09:09 | OP ---
PATIENT NAME: BRIANNA RAE MEDICAL RECORD: [id number] :63 LOCATION:[facility] ADMISSION DATE:01/07/19 SURGEON: CECIL NEWMAN MD DATE OF OPERATION: 01/12/2019 SURGEON: Cecil Newman MD FIELD INSPECTOR: None. PROCEDURE PERFORMED: Off pump coronary artery bypass graft times 2 (left internal mammary artery to LAD, reverse saphenous vein graft from aorta to first diagonal). PREOPERATIVE DIAGNOSES: Acute coronary syndrome, dilated cardiomyopathy, history of cerebrovascular accident, acute and chronic kidney disease, hypertension, obesity. POSTOPERATIVE DIAGNOSES: Acute coronary syndrome, dilated cardiomyopathy, history of cerebrovascular accident, acute and chronic kidney disease, hypertension, obesity. ANESTHESIA: General endotracheal anesthesia. ESTIMATED BLOOD LOSS: 200 cc with 90 cc Cell Saver for retransfusion. COMPLICATIONS: None. SPECIMENS: None. CONDITION: Stable. DISPOSITION: CV ICU. OPERATIVE FINDINGS: 1. Transesophageal echocardiography was consistent with the preoperative transthoracic echocardiography with dilated left ventricle, 6.6 cm end-diastolic dimension with 50% to 55% contractility. After revascularization with similar preload, end-diastolic dimension 4.5 cm. Transesophageal echocardiography revealed 2+ mitral regurgitation prior to revascularization, none following revascularization. 2. The patient had a urethral stricture that required dilatation and cystoscopy by urology, separate dictation. 3. Good quality, moderately large 7 to 8 mm greater saphenous vein harvested from the lower right thigh with bridging incision. 4. Good quality left internal mammary artery. 5. Large dilated heart. 6. The LAD was a 1.5-mm vessel with severe disease. Good Doppler signal after anastomosis and after reversal of heparin. 7. First diagonal 2.0-mm vessel with diffuse disease. Proximal anastomosis utilizing the Heartstring device. OPERATIVE INDICATION: Acute coronary syndrome and LAD diagonal stenosis with severe calcification not amenable to percutaneous coronary intervention. OPERATIVE PROCEDURE IN DETAIL: The patient was brought to the operative suite. OPERATIVE REPORT [id number] BRIANNA RAE General anesthesia was obtained. The patient was prepped and draped. Incisions were made in the right thigh to remove the veins. Side branches were divided with clips. Vessel ligated proximally and distally and removed. Side branches were tied and thin sites were oversewn. Leg was closed in 2 layers and Dermabond on the skin. Median sternotomy incision was made. Subcutaneous tissue was divided with electrocautery. Sternum was divided with a saw. Left hemisternum was elevated. Left pleural cavity was entered. Left internal mammary vein was taken down as a pedicle graft.. Sternal retractor was placed. Pericardium was opened. Heparin was given. The heart was elevated on a laparotomy pad. The off pump retraction system was used to stabilize first the diagonal vessel inflow occlusion. The vessel was opened. End-to-side anastomosis was performed. The internal mammary was clipped distally. The opening in the left pericardium was made. The heart was stabilized throughout the LAD with inflow occlusion end-to-side anastomosis. Good Doppler signal after restoring flow and the pedicle was tacked to the heart. Heart was then returned to the anatomic position. Systolic pressure reduced to less than 100. Heartstring device on the anterior ascending aorta single proximal anastomosis. No bleeding was noted. Protamine was given. Hemostasis was ensured. Drains were placed in the mediastinum and the pleural cavity. Ventricular pacing wires were placed. Pericardial fat was loosely reapproximated. The internal mammary harvest site was inspected for bleeding. The left chest was evacuated and irrigated. The sternum was closed with wires. Fascia was closed. Subcutaneous tissues were closed. Skin was closed. Dermabond was placed. The needle and sponge counts reported as correct. The patient was taken to the ICU in stable condition. TRANSINT:[id number] Voice Confirmation ID: [id number] DOCUMENT ID: [id number] CECIL NEWMAN MD at 0909 CC: MARKOS HOLLIDAY M.D. [id number] DICTATION DATE: 01/12/19 1441 VB NET PROGRAMMER: 01/12/19 1503 ADM IN [place] [id number] [place] [id number]
--- NOTE | 2019-01-13 09:48 | NUR ---
ABBlaire'S OBTAINED. DR NEWMAN REVIEWED. OK TO EXTUBATE. PT EXTUBATED AND PLACED ON 6L VIA NC PER RT. VSS. WILL CONT POC.
--- NOTE | 2019-01-13 10:15 | NUR ---
PT TOLERATING ICE CHIPS WELL. VSS WILL CONT POC.
--- NOTE | 2019-01-13 10:30 | NUR ---
SPOKE WITH DR NEWMAN. DANLGLE THE PT ON THE SIDE OF THE BED TODAY AND GET PT OOB TOMORROW.
--- NOTE | 2019-01-13 12:39 | NUR ---
PT SITTING UP IN BED. VSS. CALL LIGHT IN REACH. WILL COT POC.
--- NOTE | 2019-01-13 13:46 | NUR ---
FAMILY AT THE PTS BEDSIDE. VSS. PT PULLING ABOUT 500-750 ON HIS IS. CALL LIGHT IN REACH. WILL CONT POC.
--- NOTE | 2019-01-13 14:15 | NUR ---
REPORT RECIEVED, PT DENIES NEEDS, VSS, WILL CONTINUE TO MONITOR
--- NOTE | 2019-01-13 16:56 | NUR ---
1500 REPOSITIONED IN BED 1645 DANGLED ON SIDE OF BED, TOLERATED WELL
--- NOTE | 2019-01-13 19:00 | NUR ---
REPORT RECEIVED. RECEIVED PATIENT IN BED AWAKE ALERT AND ORIENTED X 4. ASSESSMENT COMPLETED PER FLOW SHEET WITH NO ACUTE DISTRESS OBSERVED. MONITORS CONNECTED TO PATIENT WITH ALARMS SET. VSS. CX TUBE SECURE/PATENT CONNECTED TO 20CM SUCTION DRAINING SMALL AMOUNT OF BLOODY DRAINAGE INTO COLLECTION CHAMBER. CALL LIGHT IN REACH. IV TUBING /FLUIDS DATED/LABELED AND CURRENT ALL UNUSED ACCESS PORTS COVERED WITH SWAB CAPS.
--- NOTE | 2019-01-13 21:00 | NUR ---
AWAKE AND ALERT. PM PO MEDS TAKEN WITHOUT DIFF. KAILA PO FLUIDS WITHOUT DIFF. CALL LIGHT IN REACH. VSS
--- NOTE | 2019-01-13 23:00 | NUR ---
REASSESSMENT COMPLETED PER FLOW SHEET WITH NO ACUTE DISTRESS OBSERVED. VSS. CALL LIGHT IN REACH
[2019-01-14] VITALS (80 sets, daily range): BP systolic 92–207; BP diastolic 51–114
--- NOTE | 2019-01-14 01:00 | NUR ---
RESTING WITH EYES CLOSED. ROUSES EASILY. VSS
--- NOTE | 2019-01-14 02:00 | NUR ---
PATIENT AWAKE AND ALERT. CONFUSED/DISORIENTED/AGITATED TO PLACE AND TIME. PULLING AT CVL AND TIFFANIE. ASSISTED WITH REPOSITIONING IN BED. REORIENTED WITH LITTLE RETENTION BUT CALMED AND STOPPED PULLING LINES. CALL LIGHT IN REACH. VSS
--- NOTE | 2019-01-14 03:00 | NUR ---
RESTING WITH EYES CLOSED AND CHEST RISING. VSS
--- NOTE | 2019-01-14 04:30 | NUR ---
CHG BATH AND SUBSTERNAL DRESSING CHANGE PERFORMED. 0500 ASSISTED TO BEDSIDE CHAIR X 2 ASSIST. KAILA WELL. VSS. CHAIR ALARM IN PLACE 0600 PATIENT PULLING AT CVL, REMOVED MIDSTERNAL DRSG, PULLING AT CX TUBES/NELIA PULLING AT FC. PATIENT VERY AGITATED AND CONFUSED STATING HE WANTS TO LEAVE THAT HE'S BEEN KIDNAPPED. PATIENT REORIENTED WITH NO EFFECT. ATTEMPTS MADE TO CALM PATIENT WITH NO EFFECT. 0645 ASSISTANCE OBTAINED FROM OTHER NURSING STAFF, PATIENT INTO BED, BP ELEVATED. [address] NEWMAN INFORMED OF ABOVE. NEW ORDERS RECEIVED.
[2019-01-14 06:14] LABS: BASOPHILS 0.2 % (0-2); EOSINOPHILS 0.1 % (0-7); HEMATOCRIT 33.5 % (42.0-54.0); HEMOGLOBIN 10.7 g/dL (13.5-17.5); IMMATURE GRANULOCYTES 0.7 % (0-5); LYMPHOCYTES 12.6 % (15-50); MCH 25.7 pg (26.0-34.0); MCHC 31.9 g/dL (31.0-37.0); MCV 80.5 fL (80.0-100.0); MEAN PLATELET VOLUME 9.8 fL (7.4-10.4); MONOCYTES 10.5 % (2-11); NEUTROPHILS 75.9 % (40-80); PLATELET COUNT 222 10x3/uL (130-400); RBC 4.16 10x6/uL (4.20-6.10); RDW 15.3 % (11.5-14.5); WBC 14.7 10x3/uL (4.8-10.8)
[2019-01-14 06:39] LABS: ALBUMIN 2.7 g/dL (3.4-5.0); ANION GAP 14.3 mmol/L (8-16); BILIRUBIN - TOTAL 0.93 mg/dL (0.2-1.3); CALCIUM 8.6 mg/dL (8.5-10.1); CARBON DIOXIDE 25.9 mmol/L (21.0-32.0); CREATININE - SERUM 2.5 mg/dL (0.6-1.3); POTASSIUM - SERUM 4.2 mmol/L (3.5-5.1); PROTEIN - SERUM 6.7 g/dL (6.4-8.2)
[2019-01-14 08:08] LABS: IMMUNOGLOBULIN E 172 IU/mL (6-495)
--- NOTE | 2019-01-14 10:42 | NUR ---
0730: REC'D CONFUSED AND COMBATIVE. HYPERTENSIVE. ATIVAN 1MG GIVEN IV BY FRANCISCA NAIDU. 0745: ASLEEP. REMAINS HYPERTENSIVE AFTER IV LOPRESSOR. 0800: PHONED DR. NEWMAN REGARDING CONTINUED HTN. NEW ORDERS REC'D. 0830: NTG STARTED. SEE IV FLOWSHEET. 0900: CLEVIPREX STARTED. NTG @ 30 MCG/MIN
--- NOTE | 2019-01-14 14:14 | NUR ---
1230: DR. NEWMAN HERE. CHEST TUBES, NELIA DRAIN AND TEMPORARY PACING WIRE DC'D. SITE DRESSED WITH 4X4 AND TEGADERM. 1230: R RADIAL ART LINE DC'D. MANUAL PRESSURE HELD X 3 MIN. SITE DRESSED WITH 2X2 AND SECURED WITH TAPE. SALINE LOCK DC'D IN R HAND. 1315: DR. MANN HERE. 1330: PLACED ON BIPAP @ 75%.
--- NOTE | 2019-01-14 19:00 | NUR ---
REPORT RECEIVED. RECEIVED PATIENT IN BED. AWAKE AND ALERT. ORIENTED TO SELF ONLY. ASSESSMENT COMPLETED PER FLOW SHEET WITH NO ACUTE DISTRESS OBSERVED. MONITORS CONNECTED TO PATIENT WITH ALARMS SET. VSS. CALL LIGHT IN REACH
--- NOTE | 2019-01-14 21:00 | NUR ---
IN ROOM PATIENT PULLING OFF NC AND PULLING AT CVL LINES. REORIENTED/ CALMED. NC REPLACED ON PT.VSS
--- NOTE | 2019-01-14 21:30 | NUR ---
PM MEDS TAKEN WITHOUT DIFF. PLACED ON BIPAP PER PRN ORDER FOR INCREASED RESP AND RESPIRATORY EFFORT. KAILA WELL.
--- NOTE | 2019-01-14 22:00 | NUR ---
PATIENT PULLING OFF BIPAP MASK, PULLING AT LINES. VSS. ATTEMPTED TO REORIENT/CALM/REDIRECT WITHOUT EFFECT.
--- NOTE | 2019-01-14 23:00 | NUR ---
REASSESSMENT COMPLETED WITH NO DISTRESS OBSEVED. CONTINUES ON BIPAP AND TOLERATING WELL. RESP WITH EASE. VSS
[2019-01-15] VITALS (29 sets, daily range): BP systolic 92–142; BP diastolic 62–91
--- NOTE | 2019-01-15 01:00 | NUR ---
RESTING WITH EYES CLOSED. VSS.
--- NOTE | 2019-01-15 03:00 | NUR ---
RESTING WITH EYES CLOSED. REASSESSMENT PERFORMED PER FLOW SHEET WITH NO ACUTE DISTRESS OBSERVED. VSS
--- NOTE | 2019-01-15 05:00 | NUR ---
RESTING WITH EYES CLOSED, ROUSES EASILY TO VOICE. BIPAP REMOVED PLACED ON 02 HIGH FLOW NC @4L/MIN KAILA WELL. ORAL CARE PERFORMED. CONFUSION REMAINS BUT DOES ANSWER MOST QUESTIONS APPROPRIATELY. VSS
[2019-01-15 05:22] LABS: HEMATOCRIT 30.6 % (42.0-54.0); HEMOGLOBIN 9.7 g/dL (13.5-17.5); MCH 25.7 pg (26.0-34.0); MCHC 31.7 g/dL (31.0-37.0); MEAN PLATELET VOLUME 10.2 fL (7.4-10.4); PLATELET COUNT 252 10x3/uL (130-400); RBC 3.78 10x6/uL (4.20-6.10); RDW 15.1 % (11.5-14.5); WBC 10.9 10x3/uL (4.8-10.8)
[2019-01-15 05:35] LABS: ALBUMIN 2.3 g/dL (3.4-5.0); ANION GAP 11.8 mmol/L (8-16); BILIRUBIN - TOTAL 0.98 mg/dL (0.2-1.3); CALCIUM 8.2 mg/dL (8.5-10.1); CARBON DIOXIDE 26.8 mmol/L (21.0-32.0); MAGNESIUM - SERUM 2.3 mg/dL (1.8-2.4); PHOSPHOROUS 3.8 mg/dL (2.5-4.9); POTASSIUM - SERUM 4.6 mmol/L (3.5-5.1); PROTEIN - SERUM 5.4 g/dL (6.4-8.2)
[2019-01-15 05:51] LABS: LYMPHOCYTES 15 % (15-50); MONOCYTES 3 % (2-11); NEUTROPHILS 80 % (40-80); PLATELET ESTIMATE NORMAL
--- NOTE | 2019-01-15 07:30 | NUR ---
SHIFT REPORT RECEIVED. APPEARS ASLEEP. AROUSES TO VOICE. SPEECH DIFFICULT TO UNDERSTAND. ON 3L O2 VIA HIGH FLOW NC. RIJ CVL SALINE LOCK. ARCHULETA CATH IN PLACE WITH YELLOW URINE NOTED. MIDSTERNAL INCISION COMPUTER GRAPHIC ARTIST. EDGES WELL APPROXIMATED. SUBTERNAL DRESSING C/D/I. RLE HARVEST SITES COMPUTER GRAPHIC ARTIST. ASSISTED UP TO CHAIR. CHAIR ALARM IN PLACE. NO FEVER NOTED AT THIS TIME. VSS. WILL CONTINUE TO MONITOR.
--- NOTE | 2019-01-15 09:28 | TEE ---
PATIENT:BRIANNA RAE MEDICAL RECORD: [id number] LOCATION:[place] [address] AGE OF PATIENT: 53 ADMISSION DATE: 01/07/19 SEX: M REFERRING PHYSICIAN: INTERPRETING PHYSICIAN: BRODY CONNORS MD TRANSESOPHAGEAL ECHOCARDIOGRAM Date: 01/12/19 ARVIN CHARGE Y INDICATIONS: CABG PREMEDICATIONS: PATIENT'S RESPONSE PROCEDURE DOPPLER MEASUREMENTS: LVIT LA PA 110 RA LVOT 118 RVOT 94 Asc. Ao 183 AV Gradient Peak 13.4 AV Mean 8.5 AV Area 2.5 MV Gradient Peak 4.1 MV Mean 2.5 MV Area INTERPRETATION: Doppler: 2-D: COLOR FLOW DOPPLER NORMAL SALINE STUDY: MISCELLANOUS: DIAGNOSIS: PLAN: Rubber Goods Finisher:1 Dr. Connors Griddle Attendant: Keyanna HUDSON COMMENTS: TRENT/MG PATIENT DATE OF SERVICE: 01/13/2019 Echocardiogram evaluation of valvular structures during bypass surgery FINDINGS: 1. Left ventricular chamber size is within normal limits. Left ventricular systolic function is normal. Overall ejection fraction estimated at 55%. 2. Left atrium, right atrium, and right ventricular chamber sizes are mildly dilated. TRANSESOPHAGEAL ECHOCARDIOGRAM REPORT [id number] BRIANNA RAE 3. Valvular structures have normal structure and motion. 4. Preoperatively, there was mild to moderate mitral regurgitation. Postoperatively, no mitral regurgitation was present. Mild tricuspid regurgitation was present. 5. No evidence of pericardial effusion or left ventricular thrombus. TRANSINT:[id number] Voice Confirmation ID: [id number] DOCUMENT ID: [id number] at 0928 CC: [id number] DICTATION DATE: 01/13/19 110 FIELD SERVICE POULTRY TECHNICIAN: 01/14/19 0019 ADM IN [facility] [address] [place] [id number]
--- NOTE | 2019-01-15 11:17 | NUR ---
VENOUS ACCESS NURSE IN UNIT. DR. NEWMAN WANTS PICC LINE PLACED. ORDERED VERIFIED WITH CHANEL NAIDU.
--- NOTE | 2019-01-15 13:21 | NUR ---
ASSISTED BACK TO BED. WILL CONTINUE TO MONITOR.
--- NOTE | 2019-01-15 13:29 | NUR ---
Nutrition Follow-up: POD 3 CABG. Sitting in chair with lunch tray. Good PO intake prior to surgery. Diet: Diabetic Wt: 270.6# Last BM: 01/04 per chart Labs noted: Glu 164, K+ 4.6, Ca 8.2, Alb 2.3 Meds noted: Humulin, Senokot, Colace -Continue current diet as tolerated. -Offer Glucerna with meals. -RD following.
--- NOTE | 2019-01-15 16:53 | NUR ---
PICC PLACEMENT CONFIRMED VIA XRAY IN THE LT UPPER ARM. CORDIS REMOVED PER ORDER. DIRECT PRESSURE APPLIED NO SIGN OF BLEEDING 4X4 AND TEGADERM SECURED. WILL CONTINUE TO MONITOR.
--- NOTE | 2019-01-15 19:30 | NUR ---
PT AWAKE AND ALERT, DISORIENTED TO TIME AND SITUATION. FOLLOWS ALL COMMANDS. VSS, NO C/O PAIN. LUNG SOUNDS CRACKLES/DIMINISHED. 3L O2 VIA HFNC, SPO2 98. S1S2 HEARD, PERIPHERAL PULSES PRESENT. BOWEL SOUNDS ACTIVE IN ALL QUADRANTS. ARCHULETA CATH INTACT WITH YELLOW URINE TO BEDSIDE DRAINAGE. MIDLINE CHEST INCISION OPEN TO AIR, APPROXIMATED WELL. RLE HARVEST SITES OPEN TO AIR, APPROXIMATED. PT REPOSITIONED FOR COMFORT. REACHING 500 ON I/S. CALL LIGHT AND BEDSIDE TABLE WITHIN PT REACH. CPOC.
--- NOTE | 2019-01-15 21:40 | NUR ---
HS MEDS GIVEN WITHOUT DIFFICULTY, FRESH WATER TO BEDSIDE. PT REPOSITIONED FOR COMFORT. VSS, DENIES ANY PAIN AT THIS TIME. CALL LIGHT AND BEDSIDE TABLE WITHIN PT REACH. CPOC.
--- NOTE | 2019-01-15 23:30 | NUR ---
PT RESTING QUIETLY WITH NO S/S OF ACUTE DISTRESS. BIPAP IN PLACE, SPO2 98%. NO C/O PAIN. REPOSITIONED FOR COMFORT. SEE FLOWSHEET FOR ALL FINDINGS. CALL LIGHT WITHIN PT REACH. CPOC.
[2019-01-16] VITALS (23 sets, daily range): BP systolic 110–144; BP diastolic 62–101
--- NOTE | 2019-01-16 01:30 | NUR ---
PT RESTING QUIETLY WITH NO S/S OF ACUTE DISTRESS. BIPAP ON, SPO2 97. PT REPOSITIONED FOR COMFORT, WARM BLANKET PROVIDED UPON REQUEST. DENIES FURTHER NEEDS. CALL LIGHT AND BEDSIDE TABLE WITHIN PT REACH. CPOC.
--- NOTE | 2019-01-16 03:23 | NUR ---
BIPAP REMOVED UPON REQUEST, ATTEMPTED TO PLACE NASAL CANNULA ON PT, PT REFUSED AND PUT HANDS UP IN FRONT OF FACE STATING, "IM NOT WEARING THAT SHIT NO MORE IM DONE WITH IT." ATTEMPTED TO REPOSITION PT FOR COMFORT WITH ALBA MCGOWAN RN- PT REFUSED AND STATED, "DO YOU WANT TO GET HIT? DO YOU WANT TO FIGHT? DONT TOUCH ME." ATTEMPT TO REPOSITION WERE IMMEDIATELY STOPPED. PT DENIES NEEDS AND REQUESTS TO BE LEFT ALONE. VSS, CALL LIGHT WITHIN PT REACH.
--- NOTE | 2019-01-16 03:32 | NUR ---
PT CONTINUES TO YELL OUT THAT HE IS NOT COMFORTABLE, SECOND ATTEMPT TO REPOSITION PT WITH KUSH BURNETT RN- PT REFUSES STATING, "I WANT YOU TO LEAVE ME ALONE AND GET OUT." VSS, CALL LIGHT WITHIN PT REACH.
--- NOTE | 2019-01-16 03:50 | NUR ---
PT CALLS FOR HELP AND STATES THAT HE IS NOW READY TO BE REPOSITIONED. PT REPOSITIONED WITH EVANGELISTA SHAH. PT STATES, "IM BETTER NOW I JUST NEEDED TO HAVE MY FIT, I KNOW YALL ARE JUST TRYING TO HELP ME." PT STATES HE IS COMFORTABLE AND DENIES FURTHER NEEDS. CALL LIGHT AND BEDSIDE TABLE WITHIN PT REACH. CPOC.
--- NOTE | 2019-01-16 04:56 | NUR ---
ASSISTED PT UP TO BATHROOM AND THEN TO CHAIR. GENERALIZED WEAKNESS PRESENT. VSS, NO C/O PAIN AT THIS TIME. COMPLETE LINEN CHANGE PROVIDED. FRESH WATER TO BEDSIDE. DENIES FURTHER NEEDS. I/S REACHING 500. CALL LIGHT WITHIIN PT REACH. CPOC.
[2019-01-16 05:16] LABS: BASOPHILS 0.1 % (0-2); EOSINOPHILS 1.3 % (0-7); HEMATOCRIT 30.3 % (42.0-54.0); HEMOGLOBIN 9.5 g/dL (13.5-17.5); IMMATURE GRANULOCYTES 0.2 % (0-5); LYMPHOCYTES 21.4 % (15-50); MCH 25.5 pg (26.0-34.0); MCHC 31.4 g/dL (31.0-37.0); MCV 81.2 fL (80.0-100.0); MEAN PLATELET VOLUME 9.7 fL (7.4-10.4); MONOCYTES 8.7 % (2-11); NEUTROPHILS 68.3 % (40-80); PLATELET COUNT 268 10x3/uL (130-400); RBC 3.73 10x6/uL (4.20-6.10); WBC 8.3 10x3/uL (4.8-10.8)
[2019-01-16 06:03] LABS: ALBUMIN 2.3 g/dL (3.4-5.0); ANION GAP 14.9 mmol/L (8-16); BILIRUBIN - TOTAL 0.7 mg/dL (0.2-1.3); CALCIUM 9.1 mg/dL (8.5-10.1); CARBON DIOXIDE 24.7 mmol/L (21.0-32.0); CREATININE - SERUM 2.3 mg/dL (0.6-1.3); MAGNESIUM - SERUM 2.4 mg/dL (1.8-2.4); PHOSPHOROUS 4.2 mg/dL (2.5-4.9); POTASSIUM - SERUM 3.6 mmol/L (3.5-5.1); PROTEIN - SERUM 6.3 g/dL (6.4-8.2)
--- NOTE | 2019-01-16 07:23 | NUR ---
SHIFT REPORT RECEIVED. SITTING UP IN BED. FENTANYL EPIDURAL IN PLACE. RIJ CVL WITH PLASMOLYTE, ZINACEF AND MORPHINE BOX CUTTER. PLACED ON 2 LITERS O2 VIA NC. REPORTS SORE THROAT AND HEADACHE 07/07. RIGHT SIDE CT IN PLACE TO WATER SEAL, AIR LEAK NOTED, DRESSING C/D/I. SAFETY MEASURES IN PLACE. CALL LIGHT IN REACH. WILL CONTINUE TO MONITOR.
--- NOTE | 2019-01-16 07:50 | NUR ---
DR. NEWMAN AT BEDSIDE. MADE AWARE OF SUBCUTANEOUS AIR ON LEFT UPPER CHEST. WILL CONTINUE TO MONITOR.
--- NOTE | 2019-01-16 09:00 | NUR ---
PT TO THE RESTROOM FOR BM TRANSPORTED WITH MINIMAL HELP. BACK IN CHAIR. ARCHULETA CARE PREFORMED WHILE USING THE RESTROOM.
--- NOTE | 2019-01-16 10:30 | NUR ---
REQUESTING A BONE SCAN WANTED TO CHECK IN WITH NEPHROLOGY BEFORE DONE. DR.GERSH PRABHAKAR.
--- NOTE | 2019-01-16 14:45 | NUR ---
PT UP TO THE RESTROOM BM PREFORMED. BACK TO BED WHILE NUC MED NURSES ARRIEVED AND TOOK FOR BONE SCAN.
--- NOTE | 2019-01-16 16:47 | NUR ---
02 SAT 88 ON ROOM AIR. PLACED ON 2L O2 VIA HIGH FLOW NC.
--- NOTE | 2019-01-16 19:55 | NUR ---
ORAL CARE DONE WITH PERIDEX
--- NOTE | 2019-01-16 20:05 | NUR ---
HS MEDS GIVEN WITHOUT DIFFICULTY, FRESH WATER TO BEDSIDE. LINEN CHANGE PROVIDED AD PT REPOSITIONED IN BED FOR COMFORT WITH PROMINENCES BRIDGED. VSS. PT STATES HE IS HAVING BACK PAIN 6/10 AND REQUESTS PRN PERCOCET, ADMINISTERED PER ORDER. DENIES FURTHER NEEDS AT THIS TIME. CALL LIGHT AND BEDSIDE TABLE WITHIN PT REACH. CPOC.
--- NOTE | 2019-01-16 22:45 | NUR ---
PULLED OFF ALL MONITORING EQUIPMENT, EQUIPMENT REPLACED AND PUT BACK ON PT. PT TEACHING PROVIDED AT THIS TIME. PT STATES HE UNDERSTANDS AND KNOWS HES SUPPOSED TO LEAVE THE MONITORING EQUIPMENT ON. VSS. CALL LIGHT WITHIN PT REACH.
[2019-01-17] VITALS (22 sets, daily range): BP systolic 124–164; BP diastolic 74–911
--- NOTE | 2019-01-17 00:09 | NUR ---
PT PULLED OFF BIPAP MASK, REFUSES TO WEAR NC OR BIPAP AT THIS TIME AND TELLS RN AND RT TO "SHUTUP AND LEAVE HIM ALONE" VSS, RT/RN LEAVE ROOM UPON REQUEST. CALL LIGHT WITHIN PT REACH.
--- NOTE | 2019-01-17 00:12 | NUR ---
PT STATES, "IM SORRY, I WILL WEAR THIS THIS THING NOW"- REFERRING TO THE NASAL CANNULA. REFUSES TO BE REPOSITIONED AND STATES HE IS COMFORTABLE AT THIS TIME. VSS, DENIES NEEDS. CALL LIGHT WITHIN PT REACH. CPOC.
--- NOTE | 2019-01-17 01:23 | NUR ---
PT OFF MONITOR, UPON ENTERING ROOM FOUND PT WITH ALL MONITORING EQUIPMENT PULLED OFF, PICC LINE PULLED OUT, AND NC OFF. PT ALERT AND ORIENTED X3, ANSWERS QUESTIONS APPROPRIATELY, WHEN ASKED WHY EVERYTHING WAS PULLED OUT/OFF, PT RESPONDS, "MAN, I DONT KNOW, IM TIRED OF ALL THIS." PT REFUSES TO HAVE EQUIPMENT PLACED BACK ON OR A PIV INSERTED, BECOMING AGGRESSIVE AND PUTTING HIS HANDS UP. PT HAS UNLABORED RESPIRATIONS, NOT DISPLAYING ANY S/S OF SOB. PT REFUSING TO BE REPOSITIONED FOR COMFORT. CALL LIGHT WITHIN PT REACH. ROOM VISIBLE FROM NURSES STATION.
--- NOTE | 2019-01-17 01:57 | NUR ---
PT CONTINUES TO REFUSE MONITORING EQUIPMENT. REPOSITIONED SELF INDEPENDENTLY. NO C/O PAIN. UNLABORED RESPIRATIONS. CALL LIGHT WITHIN PT REACH, ROOM VISIBLE FROM NURSES STATION, BED ALARM ON.
--- NOTE | 2019-01-17 03:30 | NUR ---
PT REQUESTS HIS MONITORING EQUIPMENT TO BE PLACED BACK ON AT THIS TIME. EQUIPMENT PLACED BACK ON PT, VSS. NO C/O PAIN. SUBSTERNAL DRESSING CHANGED. PT REPOSITIONED FOR COMFORT. DENIES FURTHER NEEDS AT THIS TIME. CALL LIGHT AND BEDSIDE TABLE WITHIN PT REACH. CPOC.
[2019-01-17 06:01] LABS: HEMOGLOBIN 9.1 g/dL (13.5-17.5); MCH 25.3 pg (26.0-34.0); MCHC 31.4 g/dL (31.0-37.0); MCV 80.6 fL (80.0-100.0); RBC 3.6 10x6/uL (4.20-6.10); RDW 14.8 % (11.5-14.5); WBC 7.2 10x3/uL (4.8-10.8)
[2019-01-17 06:22] LABS: ALBUMIN 2.3 g/dL (3.4-5.0); ANION GAP 12.9 mmol/L (8-16); BILIRUBIN - TOTAL 0.6 mg/dL (0.2-1.3); CALCIUM 8.8 mg/dL (8.5-10.1); CARBON DIOXIDE 25.7 mmol/L (21.0-32.0); CREATININE - SERUM 2.2 mg/dL (0.6-1.3); MAGNESIUM - SERUM 2.2 mg/dL (1.8-2.4); PHOSPHOROUS 3.9 mg/dL (2.5-4.9); POTASSIUM - SERUM 3.6 mmol/L (3.5-5.1); PROTEIN - SERUM 6.1 g/dL (6.4-8.2)
--- NOTE | 2019-01-17 07:00 | NUR ---
REPORT RECEVIED FROM THE OFF AISHA RN. SEE ASSESSMENT IN THE PTS FLOW SHEET. WAS INFORMED THAT THE PT HAD PULLED OUT PICC LINE AND OVER NIGHT NURSE NOTIFIED DR NEWMAN. SHE WAS INSTRUCTED TO GIVE PRN ATIVAN IF NEEDED. AT THIS TIME, THE PT IS CALM AND COOPERATIVE. PT A TO PERSON ONLY. WHENEVER ASKED WHERE HE IS AND WHAT YEAR IT IS, HE STAT "I DONT KNOW". HE WAS REORIENTED. PT VSS. PT ZANA TO NSR ON THE MONITOR 58-65. PT INSTRUCTED TO USE HIS IS. PT WAS BLOWING INTO IT AND I INSTRUCTED HIM TO USE IT CORRECTLY. PT PULLED ABOUT 500-750. CALL LIGHT IN REACH. WILL CONT POC.
--- NOTE | 2019-01-17 08:05 | NUR ---
DR NEWMAN IN THE UNIT. HOLD IV MEDICATION DUE TO NO IV ACCESS AND HIM AT RISK OF RIPPING OUT OTHER IV'S. HOLD COREG AND ASK RENAL ONCE THEY ROUND ABOUT CHANGING TO SOMETHING ELSE. GIVE PRN HYDRALAZINE IF NEEDED.
--- NOTE | 2019-01-17 09:02 | NUR ---
AM MEDS GIVEN WITH NO ISSUES.
--- NOTE | 2019-01-17 09:25 | NUR ---
PT USING HIS IS WITHOUT BEING INSTRUCTED. PULLNG ABOUT 500 TO 750.
--- NOTE | 2019-01-17 10:15 | NUR ---
DR DIAS AT THE PTS BEDSIDE. HE WAS NOTIFIED ABOUT INCREASED AGRESSION TOWARDS THE NIGHT STAFF. SEE ORDERS. DR JOHNSON CONSULTED PER DR DIAS.
--- NOTE | 2019-01-17 11:00 | NUR ---
REASSESSMENT COMPLETED. SEE FLOW SHEET. WILL CONT POC.
--- NOTE | 2019-01-17 11:06 | NUR ---
Nutrition Follow-up: POD 5 CABG. Pt/nursing reports good PO intake. Being seen by ST; they rec mech soft and thin liquids. Diet: Regular, Mech Soft, Ground Meat with Gravy and Thin Liquids Wt: 273# Last BM: 01/16 per chart Labs noted: Glu 117 Meds reviewed -Change to Diabetic diet with consistencies per ST. -Offer Glucerna if PO intake <50%. -RD following.
--- NOTE | 2019-01-17 13:30 | NUR ---
PT ASSISTED TO THE BATHROOM. VERY LARGE FORMED BP NOTED.
--- NOTE | 2019-01-17 14:48 | NUR ---
PHYSCIAL THEARPY WITH THE PT. ABULATED 200 FEET. VSS. WILL CONT POC.
--- NOTE | 2019-01-17 17:10 | NUR ---
DEANA NEWMAN CALLED AND NOTIFIED ABOUT INCREASING BP. HE STATED TO DEFER BP MEDS TO RENAL. RENAL PAGED.
--- NOTE | 2019-01-17 18:15 | NUR ---
DR SHELL PAGED AGAIN RT BP.
--- NOTE | 2019-01-17 18:24 | NUR ---
DR SHELL PAGED BACK. N.O FOR HYDRALAZINE PRN. SEE MAR
--- NOTE | 2019-01-17 19:15 | NUR ---
Received patient sitting up in chair at bedside, assessment completed per flowsheet. Patient disoriented to time, folows instructions and reorients easily. S1/S2 noted NSR on telemetry, rythmic and regular. Breathing is even/unlabored on room air with O2 sat 100%, lung sounds clear throughout. Abdomen is round/soft, bowel sounds active x4. All pulses palpable with cap refill < 3 sec, skin warm/dry. Patient denies pain or other needs at this time, see flowsheet for details. All VSS and will continue to monitor.
--- NOTE | 2019-01-17 19:22 | NUR ---
ORAL CARE DONE WITH PERIDEX
--- NOTE | 2019-01-17 21:00 | NUR ---
HS meds given without difficulty, denies further needs. Patient ambulated self to bed with standby assist, slight unsteady gait observed. No further needs and will continue to monitor.
--- NOTE | 2019-01-17 23:35 | NUR ---
Reassessment completed per flowsheet, no changes noted from previous assessment. S1/S2 noted NSR on telemetry, rythmic and regular. Breathing is even/unlabored on room air with O2 sat 98%, lung sounds clear bilateral upper and mid with diminished lower. All pulses palpable with cap refill < 3 sec, skin warm/dry. Denies pain or other needs at this time, see flowsheet for details. All VSS and will continue to monitor.
[2019-01-18] VITALS (24 sets, daily range): BP systolic 127–191; BP diastolic 78–111
--- NOTE | 2019-01-18 01:00 | NUR ---
Patient awake and sitting on side of bed, stated he "just needed to change positions". Denies pain or other needs at this time, all VSS and will continue to monitor.
--- NOTE | 2019-01-18 03:10 | NUR ---
Reassessment completed per flowsheet, no changes noted from previous assessment. S1/S2 noted NSR on telemetry, rythmic and regular. Breathing is even/unlabored on room air with O2 sat 97%, lung sounds clear bilateral upper and mid with diminished lower. All pulses palpable with cap refill < 3 sec, skin warm/dry. Denies pain or other needs at this time, see flowsheet for details. All VSS and will continue to monitor.
[2019-01-18 04:53] LABS: ALBUMIN 2.6 g/dL (3.4-5.0); ANION GAP 12.5 mmol/L (8-16); BILIRUBIN - TOTAL 0.55 mg/dL (0.2-1.3); CALCIUM 8.9 mg/dL (8.5-10.1); CARBON DIOXIDE 25.9 mmol/L (21.0-32.0); CREATININE - SERUM 1.8 mg/dL (0.6-1.3); POTASSIUM - SERUM 3.4 mmol/L (3.5-5.1); PROTEIN - SERUM 6.9 g/dL (6.4-8.2)
--- NOTE | 2019-01-18 07:00 | NUR ---
REC'D REPORT AND RESUMED CARE, AAO, SITTING ON SIDE OF BED, DENIES PAIN, NO IV ACCESS AT THIS TIME, SBP 184, OTHER VSS, ARCHULETA TO GRAVITY WITH DARK DRAINAGE TO CANISTER, ASSESSMENT PER FLOWSHEET, CALL LIGHT IN REACH,NO NEEDS AT THIS TIME.
--- NOTE | 2019-01-18 07:51 | NUR ---
SBP 180'S TO 190'S HYDRALLIZINE 25 MG PO GIVNE PER PERN ORDERS, DR GARCIA AND DR NEWMAN AWARE, PER DR SHELL WILL INCREASE DOSE TO 50 MG PRN IF N RESOLUTION
--- NOTE | 2019-01-18 08:04 | NUR ---
OOB TO CHAIR WITH STAND BY ASSIST, TOLERATED WITHOUT DIFICULTY, BP RETAKE SBP 177, WILL CONTINUE TO MONITOR
--- NOTE | 2019-01-18 09:14 | NUR ---
MORNING MEDS GIVEN PER MAR FLOWSHEET, TOLERATED WITHOUT DIFFICULTY
--- NOTE | 2019-01-18 11:20 | NUR ---
BP 188/109., HYDRALIZINE 50 MG PO GIVEN PER ORDER
--- NOTE | 2019-01-18 12:20 | NUR ---
PC TO [facility], HAD DR SUMAYA PRABHAKAR, FOR CONTINUED ELEVATED BP, SBP 188 AT HTIS TIME
--- NOTE | 2019-01-18 12:25 | NUR ---
PC FROM JAMARCUS MCDANIEL WITH RENAL, AND SHE HAS DR DIAS BESIDE HER HE STATED THAT HE JUST RESTARTED THE PATIENTS MINOXIDIL, AND TO GIVE FIRST DOSE NOW
--- NOTE | 2019-01-18 13:24 | NUR ---
PT HERE FOR AMBLATING, PLACING PATIENT ON HOLD TODAY RE: BP
--- NOTE | 2019-01-18 17:15 | NUR ---
KATHE DC'D WITHOUT DIFFICULTY, VOIDED 300 CC POST REMOVAL, AMBULATED TO BATHROOM BATH SET UP AND TAKEN INDEPENDENTLY, HELP WITH GOWN, AMBULATED TO BED WITHOUT DIFFICULTY, DINNER TRAY TO BEDSIDE, STATES NOT HUNGRY
--- NOTE | 2019-01-18 19:10 | NUR ---
Received patient laying in bed with eyes closed, assessment completed per flowsheet. Patient disoriented to time, reorients easily/follows instructions. S1/S2 noted NSR on telemetry, rythmic and regular. Breathing is even/unlabored on room air with O2 sat 95%, lung sounds clear throughout. Midsternal incision open to air, Substernal incision dressing CDI. Abdomen is round/soft with bowel sounds active x4, non-tender. Patient ambulates to bathroom without assist, clear yellow urine noted. All pulses palpable with cap refill < 3 sec, skin warm/dry. R leg harvest site open to air, well approximated. Denies pain or other needs at this time, see flowsheet for details. All VSS and will continue to monitor.
--- NOTE | 2019-01-18 21:00 | NUR ---
Patient awake in bed c/o arm pain, PRN medication provided. Discussed d/c plans with all questions answered to satisfaction, denies further needs at this time. All VSS and will continue to monitor.
--- NOTE | 2019-01-18 23:00 | NUR ---
Reassessment completed per flowsheet, no changes noted from previous assessment. Patient sitting up on edge of bed, disoriented to time. S1/S2 noted NSR on telemetry, rythmic and regular. Breathing is even/unlabored on room air with O2 sat 97%, lung sounds clear throughout. Midsternal/Substernal incision well approximated. All pulses palpable with cap refill < 3 sec, skin warm/dry. C/O arm aching post PRN medication, will reassess. Denies further needs, see flowsheet for details. All VSS and will continue to monitor.
[2019-01-19] VITALS (14 sets, daily range): BP systolic 114–158; BP diastolic 62–96
--- NOTE | 2019-01-19 01:39 | NUR ---
Patient OOB to chair at request, ambulated self to bathroom without assist. Gait slightly hunched but steady, denies needs at this time and will continue to monitor.
--- NOTE | 2019-01-19 03:00 | NUR ---
Reassessment completed per flowsheet, no changes noted from previous assessment. S1/S2 noted NSR on telemetry, rythmic and regular. Breathing is even/unlabored on room air with O2 sat 100%, lung sounds clear throughout. Midsternal/substernal incision well approximated, R leg harvest site well approximated. All pulses palpable with cap refill < 3 sec, skin warm/dry. C/O back ache 2/10, repositioned with some stated relief. No further needs at this time, see flowsheet for details. All VSS and will continue to monitor.
--- NOTE | 2019-01-19 05:00 | NUR ---
Patient ambulated self to bathroom without assist, no reported difficulties. Positioned in chair at bedside per patient request, no s/s of distress and will continue to monitor.
--- NOTE | 2019-01-19 06:00 | NUR ---
AM labs not yet collected by Phlebotomy, Lab is aware of orders and will draw.
[2019-01-19 06:45] LABS: ALBUMIN 2.8 g/dL (3.4-5.0); BILIRUBIN - TOTAL 0.61 mg/dL (0.2-1.3); CALCIUM 9.3 mg/dL (8.5-10.1); CARBON DIOXIDE 26.6 mmol/L (21.0-32.0); CREATININE - SERUM 1.5 mg/dL (0.6-1.3); POTASSIUM - SERUM 3.6 mmol/L (3.5-5.1); PROTEIN - SERUM 7.1 g/dL (6.4-8.2)
--- NOTE | 2019-01-19 08:15 | NUR ---
DR SHELL HERE ON ROUNDS. PT UP AD VIPUL.
--- NOTE | 2019-01-19 10:18 | NUR ---
NUTRITION F/U PT REPORTS HE DID NOT FEEL LIKE EATING MUCH YESTERDAY. DOING MUCH BETTER THIS AM WITH 100% INTAKE BREAKFAST. WILL CONTINUE TO PROVIDE CURRENT DIET, MONITOR PO INTAKE. RD FOLLOWING
[2019-01-19] MEDS ORDERED: PLAVIX75 MG PO (11:09)
[2019-01-19] MEDS ORDERED: PROCARDIA XL PO (11:10)
[2019-01-19] MEDS ORDERED: HYDRALAZINE HCL25 MG PO (11:10)
--- NOTE | 2019-01-19 13:08 | NUR ---
PT SITTING UP ON SIDE OF BED EATING LUNCH. DENIES NEEDS AT PRESENT.
--- NOTE | 2019-01-19 16:51 | NUR ---
DC INSTRUCTIONS GIVEN AND REVIEWED PTS INSTRUCTIONS. PT VERB UNDERSTANDING.
--- NOTE | 2019-01-19 18:09 | MORECARE ---
CASE MANAGEMENT DISCHARGE SUMMARY PATIENT: BRIANNA RAE UNIT: [id number] ADM DATE: 01/07/19 AGE: 53 : 63 SEX: M ROOM/BED: D.06 AUTHOR: CANDY,DOC PHYSICIAN: REFERRING PHYSICIAN: MARY LOYD MD DATE OF SERVICE: 01/19/19 Discharge Plan Patient Name: BRIANNA RAE Facility: [facility]:[place] : 1965 Planned Disposition: Home Anticipated Discharge Date: Discharge Date: 01/19/2019 Expected LOS: Initial Reviewer: [email or web address] Initial Review Date: 01/10/2019 Generated: 01/19/19 7:08 pm DCP- Discharge Planning Updated by [email or web address]: Jose Avila on 01/10/19 4:[address] Patient Name: BRIANNA RAE Admission Status: ER Accout number: [id number] Admission Date: 01-07-2019 : 1965 Admission Diagnosis: Attending: MARY LOYD Current LOS: 3 Anticipated DC Date: Planned Disposition: Home Primary Insurance: MEDICAID [place] Discharge Planning Comments: CM MET WITH PT IN ROOM TO DISCUSS DISCHARGE PLANNING AND NEEDS. PT REPORTS LIVING AT HOME INDEPENDENTLY WITH HIS MOTHER AND CHILDREN. PT HAS HOME OXYGEN HE WEARS ONLY AT NIGHT FROM [facility]. PT HAS NO OUTSIDE SERVICES ASSISTING IN THE HOME. CM DISCUSSED AVAILABILITY OF HOME HEALTH, REHAB SERVICES AND MEDICAL EQUIPMENT. PT DENIES DISCHARGE NEEDS AT THIS TIME, REPORTS HIS BROTHER IN LAW WILL PICK HIM UP FOR DISCHARGE HOME. PT'S FAMILY HERE FOR SURGERY TODAY, IT WAS CANCELLED. THEY ASKED FOR LETTERS FOR WORK AND SCHOOL. CM PROVIDED LETTERS FOR TODAY TO FÉLIX SAUCEDO, BROTHER IN LAW, SHALA RAE, DAUGHTER AND JUDY RAE, SON. COPIES OF LETTERS PLACED IN CHART. CM TO FOLLOW AND ASSIST NEEDED. PT PLANS TO DISCHARGE HOME WITH FAMILY, HAS NO ANTICIPATED DISCHARGE NEEDS AT THIS TIME AND BROTHER IN LAW PLANS TO [employer] PT FOR TRANSPORT HOME. Roll Scale Man: Jose Avila DCPIA - Discharge Planning Initial Assessment Updated by [email or web address]: Jose Avila on 01/10/19 4:58 pm * Is the patient Alert and Oriented? Yes * How many steps to enter\exit or inside your home? 0 * PCP DR. CAMPOS * [facility] * Preadmission Environment Home with Family * ADLs Independent * Equipment Oxygen * Other Equipment HOME OXYGEN ONLY AT NIGHT - [facility] * List name and contact numbers for known caregivers / representatives who currently or will assist patient after discharge: STAN ANGELES, MOTHER IN LAW, , * Verbal permission to speak to the caregivers and representatives has been obtained from the patient. Yes * Community resources currently utilized None * Please name any agencies selected above. NONE * Additional services required to return to the preadmission environment? No * Can the patient safely return to the preadmission environment? Yes * Has this patient been hospitalized within the prior 30 days at any hospital? No Last DP export: 01/10/19 4:15 Patient Name: BRIANNA RAE Page [id number] at 1809 All edits/amendments must be made on the electronic document DICTATION DATE: 01/19/191807 MILK DELIVERER: AUR[place]A 01/19/191807 RPT#: [id number] DC DATE:01/19/19 STATUS: DIS IN [facility] [address] [place] [address] END OF REPORT
== END 2019-01-19 17:43 | disposition home or self-care (01) | DRG 233 ==
LOC: D.ER 18:08 → D.M2 21:18 → D.CVICU 21:18
PROVIDERS: Emergency Medicine; Family Medicine; Internal Medicine Cardiovascular Disease; Internal Medicine Nephrology; Internal Medicine Pulmonary Disease; Thoracic Surgery (Cardiothoracic Vascular Surgery); Urology; ADMIT Internal Medicine Nephrology; ATTEND Internal Medicine Nephrology
PROC: B2151ZZ Fluoroscopy of Left Heart using Low Osmolar Contrast (ICD-10-PCS; 2019-01-08)
PROC: 4A023N7 Measurement of Cardiac Sampling and Pressure, Left Heart, Percutaneous Approach (ICD-10-PCS; 2019-01-08)
PROC: B2111ZZ Fluoroscopy of Multiple Coronary Arteries using Low Osmolar Contrast (ICD-10-PCS; principal; 2019-01-08 11:56)
PROC: 0210093 Bypass Coronary Artery, One Artery from Coronary Artery with Autologous Venous Tissue, Open Approach (ICD-10-PCS; 2019-01-12)
PROC: 06BP0ZZ Excision of Right Saphenous Vein, Open Approach (ICD-10-PCS; 2019-01-12)
PROC: 0T7D8ZZ Dilation of Urethra, Via Natural or Artificial Opening Endoscopic (ICD-10-PCS; 2019-01-12)
PROC: 0T9B80Z Drainage of Bladder with Drainage Device, Via Natural or Artificial Opening Endoscopic (ICD-10-PCS; 2019-01-12)
PROC: B24BZZ4 Ultrasonography of Heart with Aorta, Transesophageal (ICD-10-PCS; 2019-01-12)
PROC: 02100Z9 Bypass Coronary Artery, One Artery from Left Internal Mammary, Open Approach (ICD-10-PCS; 2019-01-12 07:30)
PROC: 05HY33Z Insertion of Infusion Device into Upper Vein, Percutaneous Approach (ICD-10-PCS; 2019-01-15)
DX: I21.4 Non-ST elevation (NSTEMI) myocardial infarction (principal); N17.0 Acute kidney failure with tubular necrosis; I50.31 Acute diastolic (congestive) heart failure; G92 Toxic encephalopathy; E87.0 Hyperosmolality and hypernatremia; I16.9 Hypertensive crisis, unspecified; F17.213 Nicotine dependence, cigarettes, with withdrawal; I13.0 Hypertensive heart and chronic kidney disease with heart failure and stage 1 through stage 4 chronic kidney disease, or unspecified chronic kidney disease; J98.11 Atelectasis; D62 Acute posthemorrhagic anemia; F41.9 Anxiety disorder, unspecified; I25.10 Atherosclerotic heart disease of native coronary artery without angina pectoris; E11.22 Type 2 diabetes mellitus with diabetic chronic kidney disease; N35.919 Unspecified urethral stricture, male, unspecified site; A63.0 Anogenital (venereal) warts; Z86.73 Personal history of transient ischemic attack (TIA), and cerebral infarction without residual deficits; J44.9 Chronic obstructive pulmonary disease, unspecified; N40.0 Benign prostatic hyperplasia without lower urinary tract symptoms; N18.3 Chronic kidney disease, stage 3 (moderate)